=== PATIENT | male | born 2005 | race Caucasian/White ===

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

== ENCOUNTER 2024-02-01 14:28 | Emergency (ER) | payer OTHER, SELFPAY ==
--- NOTE | ~2024-02-01 | CT_ITS ---
EXAMINATION: CT abdomen pelvis w IV con CLINICAL INFORMATION: Reason for Exam gluteal abscesses COMPARISON: No prior CT available for comparison. TECHNIQUE: Multidetector volumetric imaging was performed from the superior aspect of the liver through the pubic symphysis 85 mL Omnipaque 350 injected Sagittal and coronal reformatted images were obtained on the technologist's workstation. This CT examination was performed using dose optimization techniques as appropriate, variously including the following: *Automated exposure control *Adjustment of mA and/or kV according to patient size (this includes techniques or standardized protocols for targeted exams where dose is matched to indication/reason for exam; i.e. extremities or head) *Use of iterative reconstruction technique DLP: 1154 mGy-cm FINDINGS: LOWER THORAX: Included lung bases are clear. HEPATOBILIARY: No focal hepatic lesions. No biliary ductal dilatation. GALLBLADDER: Gallbladder unremarkable. SPLEEN: Spleen is normal in size. PANCREAS: No focal mass or ductal dilatation. STOMACH AND GASTROINTESTINAL TRACT: Stomach is grossly unremarkable. There is no bowel distention or thickening. No CT evidence of appendicitis. ADRENALS: No adrenal nodules. KIDNEYS/URETERS: No hydronephrosis, stones or solid mass lesions. URINARY BLADDER: Partially decompressed. PELVIC VISCERA: Unremarkable PERITONEUM: No free air or fluid. LYMPH NODES: Mildly prominent bilateral inguinal lymph nodes without evidence of bulky lymphadenopathy. Intra-abdominal periaortic and inguinal lymph nodes are normal in size by CT criteria. VASCULAR:Abdominal aorta normal in size, no aneurysm found. BONES, ABDOMINAL WALL AND SOFT TISSUES: There is soft tissue opacity within the subcutaneous fat at midline extend from the skin to the coccyx roughly measures 4.7 x 2.4 cm axially and about 4.8 cm craniocaudally concerning for possible cellulitis and/or evolving abscess. CT/CT abdomen pelvis w IV con IMPRESSION: 1. There is soft tissue opacity within the buttock subcutaneous fat at midline extend from the skin to the coccyx roughly measures 4.7 x 2.4 x 4.8 cm concerning for possible cellulitis and/or evolving abscess. Although the process is deep abutting the sacrum, No CT evidence of bone involvement i.e. osteomyelitis, no bone destruction at this time or involvement of the intrapelvic organs. 2. Mildly prominent bilateral inguinal lymph nodes might be reactive.
[2024-02-01 14:50] VITALS: BP 115/67; PULSE 78; RESP 20; TEMP 36.6; O2SAT 98; BMI 41.4
--- NOTE | 2024-02-01 14:52 | ED_ITS ---
HPI - Male Genitourinary General Chief complaint: Skin/Abscess/Foreign Body Stated complaint: Abscess Buttock Area Time Seen by Provider: 02/01/24 15:23 Source: patient and RN notes reviewed Mode of arrival: ambulatory Limitations: no limitations History of Present Illness HPI Narrative: This is a 19-year-old male, with no known medical problems, presenting to the emergency department with complaints of gluteal abscess x 2 weeks. Patient states that approximately 2 weeks ago he noticed swelling and pain to his gluteal cleft. He endorses increased swelling and pain. He states that on Sunday he was seen by an urgent care facility where he was prescribed doxycycline. States that he took 2 doses on Sunday, 2 doses on Sunday without any relief. He was then seen at [facility] where they attempted to do an incision and drainage which did not provide him with any relief. He was discharged on Bactrim. He states that he took 2 doses of Bactrim yesterday and 1 this morning. He states that the pain, swelling, and symptoms have not improved despite antibiotics. He endorsed a fever of 102 last night. He has been taking ibuprofen for his pain which has provided him without any relief. Denies any other complaints or concerns at this time. Related Data Allergies Allergy/AdvReac Type Severity Reaction Status Date / Time Penicillins Allergy Unknown Verified 02/01/24 16:00 Review of Systems 2 Review of Systems: Yes all other systems are reviewed and are negative Constitutional: Constitutional: Reports as per [facility] Social History Social History Advance Directives: No Advance Directives Information Provided: No Physical Exam 2 Vital Signs: Vital Signs: Last Vital Signs Temp 98.4 F 02/01/24 17:02 Pulse 93 02/01/24 17:02 Resp 13 02/01/24 17:02 BP 128/72 02/01/24 17:02 Pulse Ox 100 02/01/24 17:02 O2 Del Method Room Air 02/01/24 17:02 BMI result Body Mass Index 41.4 Const: General: cooperative, comfortable and no acute distress O rientation/consciousness: patient oriented x3 Limitations: no limitations HEENT: Head: Yes normal to inspection, Yes normocephalic and Yes atraumatic Ears: hearing grossly normal bilaterally General nose exam: Normal external nose present Face and sinus: Yes normal facial exam Mouth: Normal oral and palatal mucosa present, oropharynx normal and moist mucous membranes Throat: Yes posterior oropharynx normal Eyes: General: appearance normal, both eyes and all related structures E yelids: Yes eyelids normal Conjunctivae: conjunctivae normal Sclerae: s clerae normal Pupils: Equal, round and reactive pupils present EOM: EOMs intact bilaterally Neck: Neck: Yes normal visual inspection, Yes full ROM and Yes no lymphadenopathy Lymphatic: no lymphadenopathy noted Chest: Chest palpation & inspection: normal inspection of the chest Resp: Effort & Inspection: normal respiratory effort and able to speak in complete sentences Auscultation: clear to auscultation bilaterally, no crackles, no rales, no rhonchi and no wheezes Cardio: Rate: regular rate Rhythm: regular rhythm Heart sounds: S1 normal heart sound present and S2 normal heart sound present GI: Inspection: Yes normal to inspection Back/Spine/Pelvis: Other: At the gluteal cleft/left buttocks there is a 4 x 4 cm area of hard induration and cellulitis, no fluctuance felt. No drainage. Skin: General skin exam: no rashes or lesions noted Trauma: no lacerations or abrasions Wounds: no wounds Neuro: General: patient oriented x3 and moves all extremities Cranial nerves: Yes Equal, round and reactive pupils present Extrem: General: Yes normal to inspection Right upper extremity: normal to inspection Left upper extremity: normal to inspection Right lower extremity: normal to inspection Left lower extremity: normal to inspection Course Course Course Narrative: This is a rapid medical exam: Additional HPI, ROS, PE not included below will be deferred to primary provider. Upper buttock pain near gluteal cleft on bilateral sides. States that he was seen twice a [facility] for his symptoms, once with an I&D completed. He states has not been draining anything from the abscess site. Reports he last moved his bowels earlier today, denies rectal pain or discharge. Denies trauma Reevaluation(s) Reevaluation #1: CT abdomen and pelvis revealing soft tissue opacity within the buttocks subcutaneous fat at midline extending from the skin to the coccyx roughly measures 4.7 x 2.4x 4.8. Concerning for cellulitis and/or evolving abscess. No evidence of bone involvement at this time. Discussed case with my attending physician, Dr. Cunningham, who came and assessed patient at bedside and performed incision and drainage. Recommending 1 dose of IV antibiotics. Given he is allergic to penicillin, will administer cefepime as well as Toradol for pain control. Wick was placed, given wound care instructions. Patient discharged on Keflex and doxycycline. Also given stool softeners. Given strict return precautions. Patient understands and agrees with plan. Patient stable for discharge. Time: 20:39 Medications Administered Discontinued Medications Generic Name Dose Route Start Last Admin Trade Name Lesley PRN Reason Stop Dose Admin Iohexol 85 ml 02/01/24 17:17 02/01/24 17:17 Iohexol 350 Mg/Ml 100 Ml Infus..Btl IV 02/01/24 17:18 85 ml ONCE ONE Administration Medical Decision Making Medical Decision Making [facility] Narrative: This is a 19-year-old male presenting to the emergency department for evaluation abscess. On arrival, vital signs within normal limits. Patient is nontoxic appearing. Patient has hard induration noted to the left buttock/gluteal cleft. Concerning for cellulitis. Given patient has already had incision and drainage on the right, concerning for failure of p.o. antibiotics as he has been already on doxycycline and Bactrim. I am not feeling any sort of fluctuance at this time. Given appearance, failure of p.o. antibiotics with incision and drainage, will obtain CT, and labs for further evaluation. Differential Diagnosis Differential Diagnoses: The differential diagnosis associated with the presentation includes Cellulitis, osteomyelitis, abscess, pilonidal cyst Admission/Observation Consideration of admission/observation: Escalation of care including admission/observation considered Escalation of care including admission/observation considered however given workup today not warranted at this time. Lab Data [facility] Lab Attestation statement: I reviewed the patient's lab results. Patient with leukocytosis at 17 with left shift, chemistry within normal limits. 02/01/24 16:40 02/01/24 16:40 Labs: Lab Results 02/01/24 Range/Units 16:40 WBC 17.7 H (4.8-10.8) X10*3/uL RBC 5.28 (4.60-5.80) X10*6/uL Hgb 14.7 (14.0-18.0) g/dl Hct 43.4 (42.0-52.0) % MCV 82.2 (80.0-98.0) fL MCH 27.8 (27.0-33.0) pg MCHC 33.9 (31.0-36.0) g/dl RDW 11.6 (11.0-16.0) % Plt Count 295 (160-400) X10*3/uL MPV 9.6 (9.4-12.4) fL Immature Gran % (Auto) 0.3 (0.0-0.4) % Neut % (Auto) 73.7 H (45-73) % Lymph % (Auto) 16.1 L (20-40) % Door % (Auto) 7.7 (2-11) % Eos % (Auto) 1.8 (0-4) % Baso % (Auto) 0.4 (0-2) % Lymph # (Auto) 2.9 (1.2-4.9) X10*3/uL Door # (Auto) 1.4 H (0.1-1.2) X10*3/uL Eos # (Auto) 0.3 (0.0-0.4) X10*3/uL Baso # (Auto) 0.1 (0.0-0.2) X10*3/uL Abs Immat Gran (auto) 0.06 H (0.00-0.03) X10*3/uL Absolute Neuts (auto) 13.1 H (2.0-8.3) x10*3/uL Absolute Nucleated RBC 0.000 (0.0-0.012) X10*3/uL Nucleated RBC % (auto) 0.0 (0.0-0.2) /100WBC Sodium 138 (135-145) mmol/L Potassium 4.1 (3.3-5.1) mmol/L Chloride 106 (96-108) mmol/L Carbon Dioxide 24 (22-29) mmol/L Anion Gap 12 (12-20) BUN 14 (9-16) mg/dL Creatinine 0.99 (0.5-1.4) mg/dL Estim Creat Clear Calc 133.4 Estimated GFR > 60 Random Glucose 89 (60-115) mg/dL Calcium 9.5 (8.4-10.2) mg/dL Total Bilirubin 0.4 (0.0-1.0) mg/dL Direct Bilirubin 0.2 (0.0-0.5) mg/dL AST 14 (5-37) U/L ALT 26 (0-40) U/L Alkaline Phosphatase 81 (39-117) U/L Total Protein 7.6 (6.5-8.0) g/dL Albumin 4.1 (3.5-5.0) g/dL Radiology Impression Discussion of test interpretation with radiology: I have reviewed the radiologist's reading. Radiologist Impression: CT/CT abdomen pelvis w IV con IMPRESSION: 1. There is soft tissue opacity within the buttock subcutaneous fat at midline extend from the skin to the coccyx roughly measures 4.7 x 2.4 x 4.8 cm concerning for possible cellulitis and/or evolving abscess. Although the process is deep abutting the sacrum, No CT evidence of bone involvement i.e. osteomyelitis, no bone destruction at this time or involvement of the intrapelvic organs. 2. Mildly prominent bilateral inguinal lymph nodes might be reactive. Procedures Abscess I/D Site: other (Buttocks) Side (if applicable): left Local Anesthetic: lidocaine 1% Amount of anesthesia used (mL): 10 Technique: incised with blade Amount of fluid expressed (mL): 15 Sent for culture/gram staining?: No Irrigation: No Packing used?: iodoform Discharge Plan Discharge Clinical Impression: Abscess Patient Disposition: Still a Patient Instructions: Abscess Follow-up (ED), Incision and Drainage (ED) Additional Instructions: You were seen in the emergency department due to an abscess. We had to open this area. We also gave you IV antibiotics. You need to take prescribed antibiotic as directed. Take doxycycline and Keflex as prescribed. Remove string from region in 2 days. You may do this by taking a shower and removing it. Keep wound clean and dry. Take prescribed medication as directed. Continue taking Tylenol and ibuprofen as needed for pain. I am also prescribing you oxycodone, only take this for severe pain only. He is be advised that this can cause drowsiness, do not drink alcohol or drive while taking this medication. This is also addictive, only take as needed. You can not have his medication refilled from the emergency room. Any new or worsening symptoms occur including but not limited to worsening pain, swelling, fevers, chills, please return for re-evaluation.
[2024-02-01 16:48] LABS: MANUAL DIFF FLAG NO
[2024-02-01 16:49] LABS: Basophils Absolute Auto 0.1 X10*3/uL (0.0-0.2); Basophils Percent Auto 0.4 % (0-2); Eosinophils Absolute Auto 0.3 X10*3/uL (0.0-0.4); Eosinophils Percent Auto 1.8 % (0-4); Hematocrit 43.4 % (42.0-52.0); Hemoglobin 14.7 g/dl (14.0-18.0); Imm Gran Abs Auto 0.06 X10*3/uL (0.00-0.03); Imm Gran Pct Auto 0.3 % (0.0-0.4); Lymphocytes Absolute Auto 2.9 X10*3/uL (1.2-4.9); Lymphocytes Percent Auto 16.1 % (20-40); Mean Corpuscular HGB Conc 33.9 g/dl (31.0-36.0); Mean Corpuscular Hemoglobin 27.8 pg (27.0-33.0); Mean Corpuscular Volume 82.2 fL (80.0-98.0); Mean Platelet Volume 9.6 fL (9.4-12.4); Monocytes Absolute Auto 1.4 X10*3/uL (0.1-1.2); Monocytes Percent Auto 7.7 % (2-11); Neutrophils Absolute Auto 13.1 x10*3/uL (2.0-8.3); Neutrophils Percent Auto 73.7 % (45-73); Platelet Count 295 X10*3/uL (160-400); Red Blood Count 5.28 X10*6/uL (4.60-5.80); Red Cell Distribution Width 11.6 % (11.0-16.0); White Blood Count 17.7 X10*3/uL (4.8-10.8)
[2024-02-01 17:02] VITALS: BP 128/72; PULSE 93; RESP 13; TEMP 36.9; O2SAT 100
[2024-02-01 17:02] LABS: Alanine Aminotransferase 26 U/L (0-40); Albumin Level 4.1 g/dL (3.5-5.0); Alkaline Phosphatase 81 U/L (39-117); Anion Gap 12 (12-20); Aspartate Amino Transferase 14 U/L (5-37); Bilirubin Direct 0.2 mg/dL (0.0-0.5); Bilirubin Total 0.4 mg/dL (0.0-1.0); Blood Urea Nitrogen 14 mg/dL (9-16); Calcium 9.5 mg/dL (8.4-10.2); Carbon Dioxide 24 mmol/L (22-29); Chloride 106 mmol/L (96-108); Creatinine Clr Calc Pharmacy 133.4; Estimated Glomerular Filt Rate > 60; Glucose Random 89 mg/dL (60-115); Potassium 4.1 mmol/L (3.3-5.1); Sodium 138 mmol/L (135-145); Total Protein 7.6 g/dL (6.5-8.0)
[2024-02-01] MEDS: iohexoL 350 MG/ML 100 ML INFUS..BTL 85 ML IV (17:17)
[2024-02-01] MEDS: Lidocaine HCl 1 % MPF 5 ML VIAL INFILTRATI ×2 (20:37→21:02)
[2024-02-01 20:55] VITALS: BP 143/84; PULSE 97; RESP 18; TEMP 37.6; O2SAT 99
[2024-02-01] MEDS: Ketorolac Tromethamine 30 MG/ML VIAL IVPUSH (21:02)
[2024-02-01] MEDS: cefEPime HCl 2 GM in 0.9 % Sodium Chloride 50 ML IV (21:02)
[2024-02-02 00:36] VITALS: BP 127/83; PULSE 96; RESP 18; TEMP 36.9; O2SAT 100
== END 2024-02-01 22:15 | disposition home or self-care (01) ==
PROVIDERS: Physician Assistant Medical; Emergency Provider Emergency Medicine; PCP Nurse Practitioner Primary Care
DX: L02.31 Cutaneous abscess of buttock (principal); Z88.0 Allergy status to penicillin
CPT/HCPCS: 10060; 36415; 74177; 80048; 80076; 85025; 87040; 96374; 96375; 99284; J0692; J1885; Q9967

== ENCOUNTER 2024-02-14 09:53 | Outpatient (AMB) | payer OTHER, SELFPAY ==
[2024-02-14 09:54] VITALS: BP 148/82; PULSE 81; BMI 41.5
--- NOTE | 2024-02-14 09:54 | A.OFFVIS_ITS ---
Intake Vital Signs 02/14/24 09:54 Height 5 ft 4 in Weight 242 lb BMI 41.5 BP 148/82 H Blood Pressure Location Rt brachial Position Sitting Pulse 81 Intake Visit Reasons: pilonidal abscess Intake Note: This patient presents for an assessment pilonidal abscess. Pt c/o; reports abscess was I&D at [facility], reports on 2 rounds of abx. Tow Driver Required: No Accompanied by: Self / Same As Patient Allergies Penicillins [PENICILLINS] Allergy (Unknown, Unverified 02/14/24 10:06) RASH SEAFOOD Allergy (Unknown, Uncoded 02/14/24 10:06) UNKNOWN Medication List - Last Reconciled 02/14/24 by Winston Skinner MD acetaminophen (Tylenol Extra Strength) 1,000 mg (2 x 500 mg) PO QID PRN cephalexin 250 mg PO QID 7 days clindamycin HCl 300 mg PO Q6H doxycycline hyclate 100 mg PO BID 7 days ibuprofen 600 mg PO Q6H PRN lisinopril 10 mg PO DAILY oxycodone 5 mg PO Q6H PRN sulfamethoxazole-trimethoprim 800-160 mg 1 tab PO BID HPI pilonidal abscess HPI Details 19-year-old male referred for a pilonida l cyst. He says he has had this area of pain, swelling and tenderness on the tailbone for about a month now. He had been to an urgent care center [facility] and was prescribed oral antibiotics which he says he had not provide relief. He went to [facility] ER and he said he had an I and D done which also did not seem to provide lasting relief He was in the ER here in [place] last February 01, 2024. He was referred to me. He was prescribed antibiotics. He says he continues to have some discomfort along with some swelling on the area. [facility] Medical History (Updated 02/14/24 @ 10:24 by Winston Skinner MD) Sacrococcygeal pilonidal cyst No known health problems Surgical History History of incision and drainage Review of Systems Const Denies chills and Denies fever(s) Card Denies chest pain, Denies dyspnea and Denies dyspnea on exertion Resp Denies cough, Denies dyspnea and Denies dyspnea on exertion GI Denies hematochezia and Denies change in bowel habits Denies hematuria and Denies difficulty urinating Musc Denies back pain and Denies limited range of motion Neuro Denies focal weakness and Denies convulsions Psych Denies depression and Denies mood swings Physical Exam Vital Signs: Last Vital Signs Pulse 81 02/14/24 09:54 BP 148/82 H 02/14/24 09:54 BMI result Body Mass Index 41.5 Const Other: Obese General: comfortable and no acute distress Orientation/consciousness: patient oriented x3 Neck Neck: Yes no lymphadenopathy Resp Auscultation: clear to auscultation bilaterally Cardio Rhythm: regular rhythm GI Palpation (GI): Soft to palpation, nontender and no guarding Back/Spine/Pelvis Other: On the sacrococcygeal area is note of midline pits within the gluteal cleft. There is note of an induration about 2.5 cm to the left of the midline as well. There has no obvious fluctuance Neuro General: patient oriented x3 Assessment & Plan Assessment & Plan (1) Sacrococcygeal pilonidal cyst: Code(s): L05.91 - Pilonidal cyst without abscess Plan: He has a pilonidal cyst in the sacrococcygeal area. There is persistent induration. There were note of midline pits I explained to him the technique of excision of this pilonidal cyst as permanent treatment. I discussed the risks including but not limited to bleeding, infections, postop pain, healing, as well as the benefits and alternatives. I explained to him that this procedure was done under anesthesia in the operating room. He understands the risk of recurrent abscesses if this diseased area is not excised He wants to proceed with excision. Coding Level of Care Code New Pt Level 3 (08418) Diagnoses Sacrococcygeal pilonidal cyst L05.91
== END 2024-02-14 10:12 | disposition home or self-care (01) ==
PROVIDERS: PCP Nurse Practitioner Primary Care; Visit Provider Surgery
DX: L05.91 Pilonidal cyst without abscess (principal)
CPT/HCPCS: 99203

== ENCOUNTER → 2024-02-14 09:53 | Outpatient (BNVA) | payer OTHER, SELFPAY | PROVIDERS: PCP Nurse Practitioner Primary Care; Visit Provider Surgery | DX: L05.91 Pilonidal cyst without abscess (principal) | CPT/HCPCS: 99202 ==

== ENCOUNTER 2024-03-11 08:00 | Day surgery (SDC) | payer OTHER, SELFPAY ==
[2024-03-07 13:47] VITALS: BMI 41.5
--- NOTE | 2024-03-07 14:55 | HO.ANESPROP2 ---
HPI - Anesthesia Eval Consult details Narrative: 19yo M for Excision Pilonidal Cyst Sacroccygeal Area PMFSH Active Problems Active Problems: All Active Problems Sacrococcygeal pilonidal cyst (Acute) Past Medical History Medical History Sacrococcygeal pilonidal cyst No known health problems Surgical History Surgical History Hx of tonsillectomy History of incision and drainage Social History Social History Patient Tobacco Use Status: Never used Tobacco Are you DNR?: No Advance Directives: No Advance Directives Information Provided: Yes Nutrition Risks: No Nutritional Risk Meds Allergies Allergy/AdvReac Type Severity Reaction Status Date / Time Penicillins [PENICILLINS] Allergy Unknown RASH Verified 03/11/24 08:16 SEAFOOD Allergy Unknown UNKNOWN Uncoded 03/11/24 08:16 Home Medications ?Medication ?Instructions ?Recorded ?Confirmed ?Last Taken ?Type lisinopril 10 mg tablet 10 mg PO DAILY 02/14/24 03/11/24 Unknown History Exam Height,Weight and Vital Signs: Height 5 ft 4 in Weight 109.769 kg Assessment and Plan Assessment Anesthesia Assessment: Chart Reviewed
[2024-03-11] MEDS: Lactated Ringers 1,000 ML 100 ML IVCONT (08:54)
[2024-03-11 09:06] VITALS: BP 140/96; PULSE 79; RESP 18; TEMP 37; O2SAT 97
--- NOTE | 2024-03-11 09:20 | HO.ANESPROP2 ---
PMFSH Active Problems Active Problems: All Active Problems Sacrococcygeal pilonidal cyst (Acute) Past Medical History Medical History Sacrococcygeal pilonidal cyst No known health problems Functional capacity: independent ambulation Family History Family history of problems with anesthesia: No Surgical History Surgical History Hx of tonsillectomy History of incision and drainage History of Problems with Anesthesia: No Social History Social History Patient Tobacco Use Status: Never used Tobacco Are you DNR?: No Advance Directives: No Advance Directives Information Provided: Yes Nutrition Risks: No Nutritional Risk Meds Allergies Allergy/AdvReac Type Severity Reaction Status Date / Time Penicillins [PENICILLINS] Allergy Unknown RASH Verified 03/11/24 08:16 SEAFOOD Allergy Unknown UNKNOWN Uncoded 03/11/24 08:16 Active Medications: Current Medications Lactated Ringer's (Lr) 1,000 mls @ 100 mls/hr IVCONT .Q10H СВЕТЛАНА Last Admin: 03/11/24 08:54 Dose: 100 mls/hr Home Medications ?Medication ?Instructions ?Recorded ?Confirmed ?Last Taken ?Type lisinopril 10 mg tablet 10 mg PO DAILY 02/14/24 03/11/24 Unknown History Exam Height,Weight and Vital Signs: Height 5 ft 4 in Weight 109.769 kg Last Vital Signs Temp 98.6 F 03/11/24 09:06 Pulse 79 03/11/24 09:06 Resp 18 03/11/24 09:06 BP 140/96 H 03/11/24 09:06 Pulse Ox 97 03/11/24 09:06 O2 Del Method Room Air 03/11/24 09:06 Airway Mallampati Class: III TM Dist: >3cm Neck ROM: Full Heart: RRR Lungs: CTA Assessment and Plan Assessment Anesthesia Assessment: Anesthesia Plan Discussed Final Anesthetic Review Family History of Problems with Anesthesia: No History of Problems with Anesthesia: No NPO: Yes ASA Class: III Final Preanesthetic Review: Meds/Allgs Chart Reviewed, Consent Obtained/Reviewed and Anes Risks/Benef Reviewed Anesthetic Plan Anesthetic Plan: GA Disposition: Standard PACU
--- NOTE | 2024-03-11 09:25 | MHC.SHP ---
Pre-Procedural Eval Section A - 24 Hr Update-Section A only Date of Service: 03/11/24 The patient is an INPATIENT: No Changes since office visit: Yes Cold of Flu in the past 2 weeks, Yes New Medical Problems, Yes Changes in Medication and Yes Patient answered all questions The patient has been examined within 24 hours of the surgical procedure. The History & Physical has been completed within 30 days and I have reviewed it.: Yes Section B - Complete if H&P > 30 days Chief Complaint: Pilonidal cyst without abscess Allergies: Allergies Allergy/AdvReac Type Severity Reaction Status Date / Time Penicillins [PENICILLINS] Allergy Unknown RASH Verified 03/11/24 08:16 SEAFOOD Allergy Unknown UNKNOWN Uncoded 03/11/24 08:16 Plan I have reviewed the history and physical and performed a pertinent physical examination on my patient. No changes have occurred unless specified. Time Spent With Patient Time: Total time managing care of this patient today ____ minutes.
[2024-03-11 09:39] VITALS: BMI 41.5
--- NOTE | 2024-03-11 11:14 | W.PM.OPN ---
Operative Note Operative Note Date of Service: 03/11/24 Narrative: Preop diagnosis: Pilonidal cyst sacrococcygeal area Postop diagnosis: The same Procedure: Excision of pilonidal cyst, sacrococcygeal area, 7 cm long by 4 cm wide by 4 cm deep Surgeon: Winston Skinner MD family service assistant: NENITA Tam The patient is a 19-year-old male with an area of persistent drainage and induration in the sacrococcygeal region consistent with a pilonidal cyst. He understood the technique of excision under general anesthesia. He was aware of the risks, benefits, and alternatives The patient was brought to the operating room placed in prone position under general anesthesia via endotracheal tube. Buttocks were retracted with wide tape laterally. The sacrococcygeal area was prepped and draped in the usual sterile fashion. A surgical time-out was done. The patient received cefazolin 2 g IV preoperatively Was note of an induration on the sacrococcygeal area to the left of the midline. There was note of multiple midline pits in the gluteal cleft. I infiltrated the planned line of incision with lidocaine 1%. I made an elliptical incision around this area of induration including the midline pits using blade 15. This was carried down through the full-thickness of the skin and subcutaneous fat with electrocautery. I excised this entire diseased tissue to make sure that we had removed all tracts The excised area was 7 cm long x 4 cm wide x 4 cm deep . There was note of persistent bleeding from throughout the deep subcutaneous tissue because of the inflammatory process. He would to do a lot of cauterization to control this oozing areas. I had to also apply multiple [id number] Polysorb 3-0 sutures on the inferior aspect of the deep subcutaneous area to control bleeders. I copiously irrigated. Once we achieved adequate hemostasis, I proceeded to reapposed the deep subcutaneous tissue with Polysorb 3-0 interrupted sutures. Skin closure was achieved with nylon 3-0 vertical mattress sutures interrupted fashion. The area was infiltrated with Marcaine 0.5% for postop analgesia. Thick dressings were applied. The procedure was completed The patient tolerated procedure well. There were no immediate complications. Initial and final counts of sponges and instruments were correct. Estimated blood loss was about 75 cc. The patient was extubated without difficulty and transferred to the recovery room with stable vital signs.
[2024-03-11 11:23] VITALS: BP 119/68; PULSE 86; RESP 16; TEMP 36.3; O2SAT 96
[2024-03-11 11:28] VITALS: BP 128/85; PULSE 78; RESP 17; O2SAT 96
[2024-03-11 11:33] VITALS: BP 128/82; PULSE 88; RESP 17; O2SAT 96
[2024-03-11 11:38] VITALS: BP 128/82; PULSE 80; RESP 17; O2SAT 96
[2024-03-11 12:03] VITALS: BP 133/88; PULSE 72; RESP 18; TEMP 36.1; O2SAT 97
--- NOTE | 2024-03-11 12:56 | HO.POSTANES ---
Post Anesthesia Evaluation Post Anesthesia Evaluation Date of Service: 03/11/24 Vital Signs: Vital Signs Temp Pulse Resp BP Pulse Ox O2 Del Method 03/11/24 12:03 97.0 F 72 18 133/88 97 Room Air 03/11/24 11:38 80 17 128/82 96 Room Air 03/11/24 11:33 88 17 128/82 96 Room Air 03/11/24 11:28 78 17 128/85 96 Room Air 03/11/24 11:23 97.3 F 86 16 119/68 96 Room Air 03/11/24 09:06 98.6 F 79 18 140/96 H 97 Room Air Anesthesia: General Endotracheal-GETA Mental Status: Awake Pain Control: Satisfactory Nausea/Vomiting: None Hydration: Adequate Anesthesia-Related Issues: No Anes. Related Issues
== END 2024-03-11 12:57 | disposition home or self-care (01) ==
PROVIDERS: PCP Nurse Practitioner Primary Care; Visit Provider Surgery
PROC: (CPT 11771; principal; 2024-03-11 09:30)
DX: L05.91 Pilonidal cyst without abscess (principal); Z79.1 Long term (current) use of non-steroidal anti-inflammatories (NSAID); Z79.899 Other long term (current) drug therapy; Z88.0 Allergy status to penicillin
CPT/HCPCS: 11771; 88304; J0690; J1100; J1885; J2250; J2405; J2704; J2795; J3010

== ENCOUNTER → 2024-03-11 08:00 | Outpatient (BNV) | payer OTHER, SELFPAY | PROVIDERS: PCP Nurse Practitioner Primary Care; Visit Provider Surgery | DX: L05.91 Pilonidal cyst without abscess (principal) | CPT/HCPCS: 11772 ==

== ENCOUNTER 2024-03-26 09:41 | Outpatient (AMB) | payer OTHER, SELFPAY ==
--- NOTE | 2024-03-26 10:17 | A.OFFVIS_ITS ---
Intake Visit Reasons: S/P excision pilonidal cyst of sacroccygeal area Intake Note: This patient presents for a post-op status post excision pilonidal cyst of sacroccygeal area. Patient c/o; reports no complaints. [employer]er [employer] Required: No Accompanied by: Self / Same As Patient Allergies Penicillins [PENICILLINS] Allergy (Unknown, Verified 03/26/24 10:25) RASH SEAFOOD Allergy (Unknown, Uncoded 03/26/24 10:25) UNKNOWN HPI HPI S/P excision pilonidal cyst of sacroccygeal area: Details: He underwent excision of a large pilonidal cyst from the sacrococcygeal area last 03/11/2024. He tolerated theprocedure well. He says he doing well at home and denies complaints with regards to the surgical site. [facility] Medical History Sacrococcygeal pilonidal cyst No known health problems Surgical History History of excision of pilonidal cyst (~03/11/24) Hx of tonsillectomy History of incision and drainage Social History Patient Tobacco Use Status: Never used Tobacco Review of Systems Const Denies chills and Denies fever(s) Card Denies chest pain, Denies dyspnea and Denies dyspnea on exertion Resp Denies cough, Denies dyspnea and Denies dyspnea on exertion GI Denies hematochezia and Denies change in bowel habits Denies hematuria and Denies difficulty urinating Musc Denies back pain and Denies limited range of motion Neuro Denies focal weakness and Denies convulsions Psych Denies depression and Denies mood swings Physical Exam Const General: comfortable and no acute distress Back/Spine/Pelvis Other: excision site on the sacrococcygeal area is well healed, sutures intact, no cellulitis Assessment & Plan Assessment & Plan (1) Sacrococcygeal pilonidal cyst: Code(s): L05.91 - Pilonidal cyst without abscess Category: Medical Plan: status post excision. I removed all his sutures. The wound edges remained well apposed. I advised him on good gene on the area. He can follow up with me on a p.r.n. basis. Coding Level of Care Code Global (80058) Diagnoses Sacrococcygeal pilonidal cyst L05.91
== END 2024-03-26 10:42 | disposition home or self-care (01) ==
PROVIDERS: PCP Nurse Practitioner Primary Care; Visit Provider Surgery
DX: L05.91 Pilonidal cyst without abscess (principal)
CPT/HCPCS: 99024

== ENCOUNTER → 2024-03-26 09:41 | Outpatient (BNVA) | payer OTHER, SELFPAY | PROVIDERS: PCP Nurse Practitioner Primary Care; Visit Provider Surgery | DX: Z48.817 Encounter for surgical aftercare following surgery on the skin and subcutaneous tissue (principal); Z98.890 Other specified postprocedural states | CPT/HCPCS: 99212 ==

== ENCOUNTER 2024-04-02 16:52 | Emergency (ER) | payer OTHER, SELFPAY ==
[2024-04-02 16:58] VITALS: BP 154/90; PULSE 98; RESP 16; TEMP 37.2; O2SAT 97; BMI 40.9
--- NOTE | 2024-04-02 16:59 | ED_ITS ---
HPI - General Adult General Chief complaint: Body Fluid Exposure Stated complaint: needle stick at work Source: patient, RN notes reviewed and old records reviewed Mode of arrival: ambulatory Limitations: no limitations History of Present Illness HPI narrative: 19-year-old male with past medical history significant for hypertension presents for evaluation of a needlestick. Patient works at the [employer]. 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 He was accidentally stuck with a needle on his right thumb fingertip while picking up 1 of these bags He believes it was a diabetic but is not entirely sure It is unclear which patient this was used on The patient has no complaints or concerns at this time He washes hands and clean the area prior to coming to the hospital Related Data Home Medications ?Medication ?Instructions ?Recorded ?Confirmed lisinopril 10 mg tablet 10 mg PO DAILY 02/14/24 03/11/24 Previous Rx's ?Medication ?Instructions ?Recorded ibuprofen 600 mg tablet 600 mg PO Q6H PRN pain #30 tabs 03/11/24 oxycodone-acetaminophen 5 mg-325 1 tab PO Q4-6H PRN pain #25 tabs 03/11/24 mg tablet (Percocet) Allergies Allergy/AdvReac Type Severity Reaction Status Date / Time Penicillins [PENICILLINS] Allergy Unknown RASH Verified 04/02/24 17:00 SEAFOOD Allergy Unknown UNKNOWN Uncoded 03/26/24 10:25 Review of Systems 2 Constitutional: Constitutional: Denies body ache(s), Denies chills, Denies fever(s) and Denies headache(s) ENT: Denies headache(s) Integumentary/Breasts: Comments: Needlestick right thumb Neurologic: Denies headache(s) PMFSH Past Medical History Medical History Sacrococcygeal pilonidal cyst No known health problems Surgical History History of excision of pilonidal cyst (~03/11/24) Hx of tonsillectomy History of incision and drainage Social History Social History Patient Tobacco Use Status: Never used Tobacco Do you have a plan to hurt others: No Plan Physical Exam ED Vital Signs: Vital Signs - 24 hr 04/02/24 16:58 Temperature 99.0 F Pulse Rate 98 Respiratory Rate 16 Blood Pressure 154/90 H Pulse Oximetry 97 Oxygen Delivery Method Room Air BMI result Body Mass Index 40.9 Const General: healthy appearing, comfortable, no acute distress, alert and awake Nutritional Appearance: well nourished Orientation/consciousness: patient oriented x3 HENMT Head: Yes normocephalic and Yes atraumatic Eyes Eyelids: Yes eyelids normal Conjunctivae: conjunctivae normal Sclerae: sclerae normal Corneas: corneas normal Pupils: Equal, round and reactive pupils present EOM: EOMs intact bilaterally Neck Neck: Yes full ROM Resp Effort & Inspection: normal respiratory effort, able to speak in complete sentences and not labored Skin Other: Pinpoint puncture wound to the right 1st fingertip General skin exam: elasticity normal Neuro General: patient oriented x3 Cranial nerves: Yes Equal, round and reactive pupils present and Yes Bilaterally intact EOM present Cognition (Neuro): normal cognition Extrem Other: Moving all extremities well without any obvious deformities Course Course Course Narrative: RME- 19-year-old male past medical history significant for hypertension presents for evaluation of a needlestick. Patient works at [employer]. He was picking up a bio hazard bag and was stuck with a needle on his right thumb. He believes it was a diabetic needle but is not quite sure. This happened 10 minutes prior to arrival. Plan for baseline labs Medical Decision Making Medical Decision Making [facility] Narrative: Patient had a needlestick pain unknown source. This was at a health center. Given that it is unknown the source and there is possibility that the source had a communicable disease, discussed risks and benefits of post exposure prophylaxis but I recommended this for the patient. We will give him the post exposure prophylaxis kit and he will follow-up with Infectious Disease Differential Diagnosis Differential Diagnoses: The differential diagnosis associated with the presentation includes Puncture wound Post exposure prophylaxis Needlestick Hepatitis exposure HIV exposure Lab Data 04/02/24 17:39 04/02/24 17:39 Labs: Lab Results 04/02/24 Range/Units 17:39 WBC 12.3 H (4.8-10.8) X10*3/uL RBC 5.51 (4.60-5.80) X10*6/uL Hgb 15.5 (14.0-18.0) g/dl Hct 45.0 (42.0-52.0) % MCV 81.7 (80.0-98.0) fL MCH 28.1 (27.0-33.0) pg MCHC 34.4 (31.0-36.0) g/dl RDW 11.9 (11.0-16.0) % Plt Count 288 (160-400) X10*3/uL MPV 10.1 (9.4-12.4) fL Immature Gran % (Auto) 0.3 (0.0-0.4) % Neut % (Auto) 74.8 H (45-73) % Lymph % (Auto) 17.2 L (20-40) % [place] % (Auto) 5.6 (2-11) % Eos % (Auto) 1.6 (0-4) % Baso % (Auto) 0.5 (0-2) % Lymph # (Auto) 2.1 (1.2-4.9) X10*3/uL [place] # (Auto) 0.7 (0.1-1.2) X10*3/uL Eos # (Auto) 0.2 (0.0-0.4) X10*3/uL Baso # (Auto) 0.1 (0.0-0.2) X10*3/uL Abs Immat Gran (auto) 0.04 H (0.00-0.03) X10*3/uL Absolute Neuts (auto) 9.2 H (2.0-8.3) x10*3/uL Absolute Nucleated RBC 0.000 (0.0-0.012) X10*3/uL Nucleated RBC % (auto) 0.0 (0.0-0.2) /100WBC Sodium 138 (135-145) mmol/L Potassium 3.8 (3.3-5.1) mmol/L Chloride 105 (96-108) mmol/L Carbon Dioxide 23 (22-29) mmol/L Anion Gap 14 (12-20) BUN 16 (9-16) mg/dL Creatinine 0.84 (0.5-1.4) mg/dL Estim Creat Clear Calc 161.6 Estimated GFR > 60 Random Glucose 137 H (60-115) mg/dL Calcium 10.0 (8.4-10.2) mg/dL Total Bilirubin 0.3 (0.0-1.0) mg/dL AST 18 (5-37) U/L ALT 25 (0-40) U/L Alkaline Phosphatase 96 (39-117) U/L Total Protein 8.1 H (6.5-8.0) g/dL Albumin 4.6 (3.5-5.0) g/dL Discharge Plan Discharge Clinical Impression: Accidental hypodermic needlestick injury Patient Disposition: Home, Self-Care Instructions: Needle Stick Injuries (ED), Postexposure Prophylaxis (ED) Additional Instructions: Your blood work today was reassuring. Given that we do not know the source of the needle that you were struck by, I recommend starting Truvada and ISENTRESS as provided. These are post exposure prophylaxis medications to help prevent acquiring communicable diseases I recommend that you do not drink alcohol or use Tylenol while taking these medications Follow-up with [facility] and Dr. Moreno at the number provided, call tomorrow to schedule follow-up Prescriptions: No Action oxycodone-acetaminophen [Percocet] 5-325 mg tablet 1 tab PO Q4-6H PRN (Reason: pain) Qty: 25 0RF Rx Instructions: Partial Fill upon patient request. ibuprofen 600 mg tablet 600 mg PO Q6H PRN (Reason: pain) Qty: 30 0RF lisinopril 10 mg tablet 10 mg PO DAILY Referrals: YULISA MORENO MD [Physician] - (needlestick at work, unknown source) Print Language: Sammarinese
--- NOTE | 2024-04-02 17:41 | MHC.EDTECH ---
PATIENT LAB DRAWN AND SENT TO LAB .
[2024-04-02 17:43] LABS: MANUAL DIFF FLAG NO
[2024-04-02 17:51] LABS: Basophils Absolute Auto 0.1 X10*3/uL (0.0-0.2); Basophils Percent Auto 0.5 % (0-2); Eosinophils Absolute Auto 0.2 X10*3/uL (0.0-0.4); Eosinophils Percent Auto 1.6 % (0-4); Hemoglobin 15.5 g/dl (14.0-18.0); Imm Gran Abs Auto 0.04 X10*3/uL (0.00-0.03); Imm Gran Pct Auto 0.3 % (0.0-0.4); Lymphocytes Absolute Auto 2.1 X10*3/uL (1.2-4.9); Lymphocytes Percent Auto 17.2 % (20-40); Mean Corpuscular HGB Conc 34.4 g/dl (31.0-36.0); Mean Corpuscular Hemoglobin 28.1 pg (27.0-33.0); Mean Corpuscular Volume 81.7 fL (80.0-98.0); Mean Platelet Volume 10.1 fL (9.4-12.4); Monocytes Absolute Auto 0.7 X10*3/uL (0.1-1.2); Monocytes Percent Auto 5.6 % (2-11); Neutrophils Absolute Auto 9.2 x10*3/uL (2.0-8.3); Neutrophils Percent Auto 74.8 % (45-73); Platelet Count 288 X10*3/uL (160-400); Red Blood Count 5.51 X10*6/uL (4.60-5.80); Red Cell Distribution Width 11.9 % (11.0-16.0); White Blood Count 12.3 X10*3/uL (4.8-10.8)
[2024-04-02 18:14] LABS: Alanine Aminotransferase 25 U/L (0-40); Albumin Level 4.6 g/dL (3.5-5.0); Alkaline Phosphatase 96 U/L (39-117); Anion Gap 14 (12-20); Aspartate Amino Transferase 18 U/L (5-37); Bilirubin Total 0.3 mg/dL (0.0-1.0); Blood Urea Nitrogen 16 mg/dL (9-16); Carbon Dioxide 23 mmol/L (22-29); Chloride 105 mmol/L (96-108); Creatinine Clr Calc Pharmacy 161.6; Estimated Glomerular Filt Rate > 60; Glucose Random 137 mg/dL (60-115); Potassium 3.8 mmol/L (3.3-5.1); Sodium 138 mmol/L (135-145); Total Protein 8.1 g/dL (6.5-8.0)
[2024-04-02] MEDS: Post Exposure Medication Kit 1 KIT PO (19:06)
[2024-04-02] MEDS: Raltegravir Potassium 400 MG TABLET PO (19:06)
[2024-04-02] MEDS: Emtricitabin/Tenofovir 200/300 TABLET 1 TAB PO (19:06)
[2024-04-03 04:24] LABS: HBc Num1 0.13 S/CO (0.00-0.79); HBsAGNum1 0.24 S/CO (0.00-0.99); HIV AB/AG Nonreactive (Nonreactive); HIV Num 1 0.05 S/CO (0.00-0.99); Hepatitis A Antibody IgM 0.26 Index (0-0.79); Hepatitis B Core Antibody Nonreactive (Nonreactive); Hepatitis B Surface Antigen Negative (Negative); ~HepC Num1 0.44 S/CO (0.00-0.79); ~Hepatitis A Antibody IgM Nonreactive (Nonreactive); ~Hepatitis B Surface Antibody NONREACTIVE (Nonreactive); ~Hepatitis C Antibody Nonreactive (Nonreactive)
== END 2024-04-02 19:52 | disposition home or self-care (01) ==
PROVIDERS: Physician Assistant; Emergency Provider Emergency Medicine; PCP Nurse Practitioner Primary Care
DX: T75.89XA Other specified effects of external causes, initial encounter (principal); W46.0XXA Contact with hypodermic needle, initial encounter; Y93.89 Activity, other specified; Y92.239 Unspecified place in hospital as the place of occurrence of the external cause; Y99.0 Civilian activity done for income or pay
CPT/HCPCS: 36415; 80053; 85025; 86704; 86706; 86709; 86803; 87340; 87389; 99281; 99283

== ENCOUNTER → 2024-04-03 10:56 | Outpatient (BNVA) | payer OTHER, SELFPAY | PROVIDERS: PCP Nurse Practitioner Primary Care; Visit Provider Physician Assistant | DX: Z77.21 Contact with and (suspected) exposure to potentially hazardous body fluids (principal) | CPT/HCPCS: 99204 ==

== ENCOUNTER → 2024-04-08 08:31 | Outpatient (BNVA) | payer OTHER, SELFPAY | PROVIDERS: PCP Nurse Practitioner Primary Care; Visit Provider Registered Nurse | DX: Z77.21 Contact with and (suspected) exposure to potentially hazardous body fluids (principal) | CPT/HCPCS: 99213 ==

== ENCOUNTER → 2024-04-17 11:40 | Outpatient (BNVA) | payer OTHER, SELFPAY | PROVIDERS: PCP Nurse Practitioner Primary Care | DX: Z77.21 Contact with and (suspected) exposure to potentially hazardous body fluids (principal) | CPT/HCPCS: 80048; 82150; 84450; 84460; 85025; 99211 ==

== ENCOUNTER → 2024-05-01 12:21 | Outpatient (BNVA) | payer OTHER, SELFPAY | PROVIDERS: PCP Nurse Practitioner Primary Care | DX: Z77.21 Contact with and (suspected) exposure to potentially hazardous body fluids (principal) | CPT/HCPCS: 82150; 82565; 84450; 84460; 85025; 99213 ==

== ENCOUNTER → 2024-05-14 11:32 | Outpatient (BNVA) | payer OTHER, SELFPAY | PROVIDERS: PCP Nurse Practitioner Primary Care | DX: Z77.21 Contact with and (suspected) exposure to potentially hazardous body fluids (principal) | CPT/HCPCS: 84450; 84460; 86706; 87389; 99211 ==

== ENCOUNTER → 2024-07-07 11:35 | Outpatient (BNVA) | payer OTHER, SELFPAY | PROVIDERS: PCP Nurse Practitioner Primary Care | DX: Z77.21 Contact with and (suspected) exposure to potentially hazardous body fluids (principal) | CPT/HCPCS: 84450; 84460; 86803; 87389; 99211 ==

== ENCOUNTER 2024-07-16 14:26 | Outpatient (REF) | payer OTHER, SELFPAY ==
[2024-07-16 16:47] LABS: Estimated Glomerular Filt Rate > 60
== END 2024-07-16 14:27 | disposition home or self-care (01) ==
LOC: HO.HHCL 14:26
PROVIDERS: Visit Provider Physician Assistant Medical
DX: Z77.21 Contact with and (suspected) exposure to potentially hazardous body fluids (principal)
CPT/HCPCS: 36415; 82565

== ENCOUNTER → 2024-10-07 11:54 | Outpatient (BNVA) | payer OTHER, SELFPAY | PROVIDERS: PCP Nurse Practitioner Primary Care | DX: Z77.21 Contact with and (suspected) exposure to potentially hazardous body fluids (principal) | CPT/HCPCS: 84450; 84460; 86803; 87389; 99211 ==

== ENCOUNTER 2024-10-13 17:54 | Outpatient (REF) | payer OTHER, SELFPAY | END 2024-10-13 17:55 | disposition home or self-care (01) | LOC: HO.HHCLNP 17:54 | PROVIDERS: Visit Provider Emergency Medicine | DX: R21 Rash and other nonspecific skin eruption (principal) | CPT/HCPCS: 36415; 87255 ==

== ENCOUNTER 2024-12-24 16:28 | Emergency (ER) | payer OTHER, SELFPAY ==
[2024-12-24 16:34] VITALS: BP 151/84; PULSE 80; RESP 20; TEMP 37; O2SAT 95; BMI 41.6
--- NOTE | 2024-12-24 16:36 | ED.SKABFB ---
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 He cleaned it right after. 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 up to date: yes Location: L hand Severity: mild Relieving factors: none Exacerbating factors: none Context: none Associated symptoms: denies other symptoms Treatments prior to arrival: other (cleaning the area and washing it well) Related Data Home Medications ?Medication ?Instructions ?Recorded ?Confirmed lisinopril 10 mg tablet 10 mg PO DAILY 02/14/24 03/11/24 Previous Rx's ?Medication ?Instructions ?Recorded ibuprofen 600 mg tablet 600 mg PO Q6H PRN pain #30 tabs 03/11/24 oxycodone-acetaminophen 5 mg-325 1 tab PO Q4-6H PRN pain #25 tabs 03/11/24 mg tablet (Percocet) emtricitabine 200 mg capsule 200 mg PO DAILY #30 caps 04/03/24 ondansetron 4 mg disintegrating 4 mg PO Q8H PRN nausea 10 days #30 04/03/24 tablet tabs raltegravir 400 mg tablet 400 mg PO BID #60 tabs 04/03/24 tenofovir disoproxil fumarate 300 300 mg PO DAILY #30 tabs 04/03/24 mg tablet Allergies Allergy/AdvReac Type Severity Reaction Status Date / Time Penicillins [PENICILLINS] Allergy Unknown RASH Verified 12/24/24 16:37 SEAFOOD Allergy Unknown UNKNOWN Uncoded 03/26/24 10:25 Review of Systems Review of Systems: Constitutional : No Fever, No Chills, Cardiovascular : No Chest Pain, No SOB Respiratory : No Dyspnea Gastrointestinal : No abdominal pain Musculoskeletal : No Joint Swelling Skin : No rash, no laceration Neuro : No Weakness, No Numbness all other systems reviewed and negative PMFSH Past Medical History Attestation statement: The following information was validated with the patient. Source: old records reviewed Medical History Sacrococcygeal pilonidal cyst No known health problems Surgical History History of excision of pilonidal cyst (~03/11/24) Hx of tonsillectomy History of incision and drainage Social History Social History Patient Tobacco Use Status: Never used Tobacco Advance Directives: No Advance Directives Information Provided: No Do you have a plan to hurt others: No Plan Physical Exam Vital Signs: Vital Signs: Last Vital Signs Temp 98.6 F 12/24/24 18:08 Pulse 80 12/24/24 18:08 Resp 20 12/24/24 18:08 BP 151/84 H 12/24/24 18:08 Pulse Ox 95 12/24/24 18:08 O2 Del Method Room Air 12/24/24 18:08 BMI result Body Mass Index 41.6 Appearance: Alert. Oriented X3. No acute distress. Eyes: Pupils equal, round and reactive to light. ENT: Pharynx normal. Neck: Normal inspection. CVS: Pulses normal. Respiratory: No respiratory distress. Abdomen: atraumatic Skin: Skin warm and dry. Normal skin color. Extremities: No lower extremity edema. I see no puncture or wound on left hand where he felt prick Neuro: Oriented X 3. No motor deficit. No sensory deficit. CN2-12 intact Course Course Course Narrative: This is a Rapid Medical Exam performed in triage by Yumiko Ríos PA-C. Full HPI, ROS and PE to be performed by primary ED provider. 19-year-old male presenting to the ED c/o left hand accidental needle stick s/p bringing out bio-hazard bag and being accidentally stuck. Unknown source of needle stick. Patient up-to-date on vaccinations PE: No appreciable open wound Plan: Labs Medications Administered Discontinued Medications Generic Name Dose Route Start Last Admin Trade Name Freq PRN Reason Stop Dose Admin Raltegravir/Emtricitabine/Tenofovir 1 kit 12/24/24 17:55 12/24/24 18:13 Post Exposure Medication Kit PO 12/24/24 17:56 1 kit ONCE ONE Administration Medical Decision Making Medical Decision Making MDM Narrative: 19 yo male with reported needlestick injury at work after review of inoculation and population his risk is .0002% after long discussion he is still asking for post exposure meds though risk is low we did discuss risks outweigh the benefits. Differential Diagnosis Differential Diagnoses: The differential diagnosis associated with the presentation includes needlestick Lab Data [facility] Lab Attestation statement: I reviewed the patient's lab results. 12/24/24 17:36 12/24/24 17:36 Labs: Lab Results 12/24/24 Range/Units 17:36 WBC 11.3 H (4.8-10.8) X10*3/uL RBC 5.57 (4.60-5.80) X10*6/uL Hgb 15.9 (14.0-18.0) g/dl Hct 46.0 (42.0-52.0) % MCV 82.6 (80.0-98.0) fL MCH 28.5 (27.0-33.0) pg MCHC 34.6 (31.0-36.0) g/dl RDW 11.6 (11.0-16.0) % Plt Count 285 (160-400) X10*3/uL MPV 10.2 (9.4-12.4) fL Immature Gran % (Auto) 0.4 (0.0-0.4) % Neut % (Auto) 63.9 (45-73) % Lymph % (Auto) 27.1 (20-40) % [place] % (Auto) 6.5 (2-11) % Eos % (Auto) 1.4 (0-4) % Baso % (Auto) 0.7 (0-2) % Lymph # (Auto) 3.1 (1.2-4.9) X10*3/uL [place] # (Auto) 0.7 (0.1-1.2) X10*3/uL Eos # (Auto) 0.2 (0.0-0.4) X10*3/uL Baso # (Auto) 0.1 (0.0-0.2) X10*3/uL Abs Immat Gran (auto) 0.05 H (0.00-0.03) X10*3/uL Absolute Neuts (auto) 7.2 (2.0-8.3) x10*3/uL Absolute Nucleated RBC 0.000 (0.0-0.012) X10*3/uL Nucleated RBC % (auto) 0.0 (0.0-0.2) /100WBC Sodium 139 (135-145) mmol/L Potassium 4.3 (3.3-5.1) mmol/L Chloride 104 (96-108) mmol/L Carbon Dioxide 27 (22-29) mmol/L Anion Gap 12 (12-20) BUN 15 (9-16) mg/dL Creatinine 0.98 (0.5-1.4) mg/dL Estim Creat Clear Calc 135.1 Estimated GFR > 60 Random Glucose 89 (60-115) mg/dL Calcium 9.5 (8.4-10.2) mg/dL Total Bilirubin 0.5 (0.0-1.0) mg/dL Direct Bilirubin 0.1 (0.0-0.5) mg/dL AST 25 (5-37) U/L ALT 36 (0-40) U/L Alkaline Phosphatase 91 (39-117) U/L Total Protein 8.3 H (6.5-8.0) g/dL Albumin 4.6 (3.5-5.0) g/dL External Record Review External record reviewed: Outpatient record Prescription Management I considered prescription management with: Antiviral (at his request even after long discussion) Discharge Plan Discharge Clinical Impression: Accidental hypodermic needlestick injury Patient Disposition: Home, Self-Care Instructions: Needle Stick Injuries (ED) Additional Instructions: we will call you with any abnormal labs HIV test returns back in 24 to 48 hours you have a .0002% chance of any transmission post exposure meds are not indicated you requested post exposure kit - there are side effects please follow up with [facility] for continued medications. you have to start these medications and continue them if you cannot get into [facility] please call your primary care doctor please repeat labs in 3 months with our [facility] things to monitor if unexplained fevers, weight loss, yellow eyes - seek care if this happens. Prescriptions: No Action oxycodone-acetaminophen [Percocet] 5-325 mg tablet 1 tab PO Q4-6H PRN (Reason: pain) Qty: 25 0RF Rx Instructions: Partial Fill upon patient request. ibuprofen 600 mg tablet 600 mg PO Q6H PRN (Reason: pain) Qty: 30 0RF lisinopril 10 mg tablet 10 mg PO DAILY tenofovir disoproxil fumarate 300 mg tablet 300 mg PO DAILY Qty: 30 0RF emtricitabine 200 mg capsule 200 mg PO DAILY Qty: 30 0RF ondansetron 4 mg tablet,disintegrating 4 mg PO Q8H PRN (Reason: nausea) 10 Days Qty: 30 0RF raltegravir 400 mg tablet 400 mg PO BID Qty: 60 0RF Referrals: [facility] [Provider Group] (call tomorrow to follow up) Interventions: ED Discharge Assessment Last Done: 12/24/24 18:08 Discharge Date/Time: 12/24/24 18:09 Print Language: Taiwanese
[2024-12-24 17:39] LABS: MANUAL DIFF FLAG NO
[2024-12-24 17:55] LABS: Alanine Aminotransferase 36 U/L (0-40); Albumin Level 4.6 g/dL (3.5-5.0); Alkaline Phosphatase 91 U/L (39-117); Anion Gap 12 (12-20); Aspartate Amino Transferase 25 U/L (5-37); Bilirubin Direct 0.1 mg/dL (0.0-0.5); Bilirubin Total 0.5 mg/dL (0.0-1.0); Blood Urea Nitrogen 15 mg/dL (9-16); Calcium 9.5 mg/dL (8.4-10.2); Carbon Dioxide 27 mmol/L (22-29); Chloride 104 mmol/L (96-108); Creatinine Clr Calc Pharmacy 135.1; Estimated Glomerular Filt Rate > 60; Glucose Random 89 mg/dL (60-115); Potassium 4.3 mmol/L (3.3-5.1); Sodium 139 mmol/L (135-145); Total Protein 8.3 g/dL (6.5-8.0)
[2024-12-24 18:06] LABS: Basophils Absolute Auto 0.1 X10*3/uL (0.0-0.2); Basophils Percent Auto 0.7 % (0-2); Eosinophils Absolute Auto 0.2 X10*3/uL (0.0-0.4); Eosinophils Percent Auto 1.4 % (0-4); Hemoglobin 15.9 g/dl (14.0-18.0); Imm Gran Abs Auto 0.05 X10*3/uL (0.00-0.03); Imm Gran Pct Auto 0.4 % (0.0-0.4); Lymphocytes Absolute Auto 3.1 X10*3/uL (1.2-4.9); Lymphocytes Percent Auto 27.1 % (20-40); Mean Corpuscular HGB Conc 34.6 g/dl (31.0-36.0); Mean Corpuscular Hemoglobin 28.5 pg (27.0-33.0); Mean Corpuscular Volume 82.6 fL (80.0-98.0); Mean Platelet Volume 10.2 fL (9.4-12.4); Monocytes Absolute Auto 0.7 X10*3/uL (0.1-1.2); Monocytes Percent Auto 6.5 % (2-11); Neutrophils Absolute Auto 7.2 x10*3/uL (2.0-8.3); Neutrophils Percent Auto 63.9 % (45-73); Platelet Count 285 X10*3/uL (160-400); Red Blood Count 5.57 X10*6/uL (4.60-5.80); Red Cell Distribution Width 11.6 % (11.0-16.0); White Blood Count 11.3 X10*3/uL (4.8-10.8)
[2024-12-24 18:08] VITALS: BP 151/84; PULSE 80; RESP 20; TEMP 37; O2SAT 95
[2024-12-24] MEDS: Post Exposure Medication Kit 1 KIT PO (18:13)
[2024-12-25 06:13] LABS: HBc Num1 0.19 S/CO (0.00-0.79); HBsAGNum1 0.29 S/CO (0.00-0.99); HIV AB/AG Nonreactive (Nonreactive); HIV Num 1 0.05 S/CO (0.00-0.99); Hepatitis B Core Antibody Nonreactive (Nonreactive); Hepatitis B Surface Antigen Negative (Negative); ~HepC Num1 0.62 S/CO (0.00-0.79); ~Hepatitis C Antibody Nonreactive (Nonreactive)
== END 2024-12-24 18:09 | disposition home or self-care (01) ==
PROVIDERS: Physician Assistant; Emergency Provider Emergency Medicine; PCP Nurse Practitioner Primary Care
DX: S61.432A Puncture wound without foreign body of left hand, initial encounter (principal); Y28.9XXA Contact with unspecified sharp object, undetermined intent, initial encounter; Y93.9 Activity, unspecified; Y92.9 Unspecified place or not applicable; Y99.0 Civilian activity done for income or pay; Z20.828 Contact with and (suspected) exposure to other viral communicable diseases
CPT/HCPCS: 36415; 80048; 80076; 85025; 86704; 86803; 87340; 87389; 99282; 99283

== ENCOUNTER → 2024-12-25 10:56 | Outpatient (BNVA) | payer OTHER, SELFPAY | PROVIDERS: PCP Nurse Practitioner Primary Care; Visit Provider Physician Assistant | DX: Z77.21 Contact with and (suspected) exposure to potentially hazardous body fluids (principal) | CPT/HCPCS: 99204 ==

== ENCOUNTER 2025-06-29 08:51 | Outpatient (AMB) | payer OTHER, SELFPAY ==
--- NOTE | 2025-06-29 09:17 | MHC.OFFVIS ---
Intake Visit Reasons: Vasectomy Consult Intake Note: PT PRESENTS FOR: VASECTOMY CONSULT UROLOGY MEDICATIONS: NONE BLOOD THINNERS: NONE Seat Scooper Machine Required: No Accompanied by: Self / Same As Patient Allergies Penicillins (PENICILLINS) Allergy (Unknown, Verified 06/29/25 11:12) RASH SEAFOOD Allergy (Unknown, Uncoded 06/29/25 11:12) UNKNOWN Medication List - Last Reconciled 06/29/25 by EMMETT Doshi-CANDICE emtricitabine 200 mg PO DAILY HPI Comments Details: Jany is a very pleasant 20-year-old male patient of Dr. Wesley. He presents to the office today for - vasectomy evaluation Vasectomy evaluation The patient presents for vasectomy consultation.? 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 Vasectomy as intended as a permanent form of control. Printed information and literature was provided to the patient. Overall there is a one in 2500 failure rate. This can occur at any time after vasectomy. Risks were discussed highlighting hematoma, spermatocele, epididymal congestion, development of sperm antibodies, and development of chronic pain estimated between 1-5%. The procedure was reviewed in detail. Anatomical diagrams of the male genitalia were used to explain the location of the vas deferens. The vas deferens will be transected, the proximal end will be cauterized, a metal clip would be applied to separate the 2 vas deferens ends. It was explained the procedure will be done in the office and takes approximately 10-15 minutes. Less common problems that arise with vasectomy include hematoma, bleeding, allergic reaction to anesthetic, epididymal infection, epididymal congestion, scrotal discomfort, spermatic leak, spermatic granuloma and the possibility of antisperm antibodies. He understands these risks and wishes to proceed. Consent was signed at the office today. He also understands that it takes 12 weeks for sperm to fully clear the system. He will need to provide a semen sample at 12 weeks and if this is not clear a 2nd sample at 16 weeks. Medical clearance to stop using protection will only be provided if he satisfies published criteria for sperm clearance. [facility] Medical History Sacrococcygeal pilonidal cyst No known health problems Surgical History History of excision of pilonidal cyst (~03/11/24) Hx of tonsillectomy History of incision and drainage Social History Patient Tobacco Use Status: Never used Tobacco Review of Systems Const All systems reviewed & are unremarkable except as noted in HPI and below Physical Exam Const General: cooperative, healthy appearing, comfortable, no acute distress, well developed, alert and awake Orientation/consciousness: patient oriented x3 Limitations: no limitations HEENT Head: Yes normal to inspection, Yes normocephalic and Yes atraumatic Ears: hearing grossly normal bilaterally Eyes General: appearance normal, both eyes and all related structures Neck Neck: Yes normal visual inspection and Yes trachea midline Chest Chest palpation & inspection: normal inspection of the chest Resp Effort & Inspection: normal respiratory effort and able to speak in complete sentences Cardio Rate: regular rate GI Inspection: Yes normal to inspection General: Yes no CVA tenderness Back/Spine/Pelvis Back: no CVA tenderness Skin General skin exam: no rashes or lesions noted Neuro General: patient oriented x3 Extrem General: Yes normal to inspection Psych Appearance: grossly normal and well kempt Mental Status: mental status grossly normal Speech and movement: Normal speech and movement present and Clear speech present Affect: normal affect Attitude: cooperative Thought process: Normal thought process present Thought content: Normal thought content present Insight: Fair insight present (Psych) Judgement: Fair judgement present (Psych) Assessment & Plan Assessment & Plan (1) Vasectomy evaluation: Code(s): Z30.09 - Encounter for other general counseling and advice on contraception Category: Medical (2) Anxiety about health: Code(s): R45.89 - Other symptoms and signs involving emotional state Category: Medical Plan Vasectomy was discussed in detail; risks and benefits; as noted above All questions were answered Consent obtained. Prescriptions provided; we discussed importance of bringing medication to office day of procedure We discussed semen analysis in office verses fellows kit. Will schedule for vasectomy Follow-up per doctor's orders; or sooner with any issues, concerns, and or questions. Medications: New tramadol Bringing medication to office day of procedure 50 mg PO Q8H PRN 9 tabs 0RF pain 3 days N43.3 - Hydrocele, unspecified diazepam (Valium) Bringing medication to office day of procedure 2 mg PO DAILY 2 tabs 0RF anxiety R45.89 - Other symptoms and signs involving emotional state Patient Instructions: The patient had an opportunity to ask questions regarding the treatment plan. All questions were answered. Physical exam, labs, and imaging were discussed and reviewed in detail. As well as risks, benefits, and discussion of treatment choices. No major barriers to understanding were identified. The patient expressed understanding and agreement with the above treatment plan. The patient was made aware they should contact our office by phone for worsening of their current condition, the appearance of new symptoms, or with any questions or concerns. Compliance is encouraged with any medications and follow up testing that is ordered. It is a privilege to be allowed the opportunity to participate in? your urological care.? Again, if you have any questions or concerns If you have any questions or concerns please do not hesitate to contact me. The office is [phone]. This note is constructed using voice recognition software. While every effort has been made to ensure accuracy motor coach bus driver errors may have been included. Yours sincerely, ELIZABETH Doshi Coding Level of Care Code New Pt Level 4 (85853) Diagnoses Vasectomy evaluation Z30.09 Anxiety about health R45.89
--- OUTSIDE RECORDS SUMMARY | 2025-06-29 09:20 | XMS_ITS | Encounter Summary ---
Author Organization [employer] Address [address] [facility] 7 [place] [address] Care Team Providers Care Family Engagement Specialist Name Role Phone Felicia Kim Primary Care Provider [phone] Reason for Visit * Reason Onset Date Comments Med Refill 05/14/2025 Encounter Details Date Type Department Care Team (Late st Contact Info) Description 05/14/2025 Refill [facility] MED[facility]INE [address] [place], [place] [phone] Felicia Kim ANP [address] [place], [place] [phone] BMI 38.0-38.9,adult; Class 3 severe obesity with serious comorbidity and body mass index (BMI) of 40.0 to 44.9 in adult, unspecified obesity type Social History Tobacco Use Types Packs/Day Years Used Date Smoking Tobacco: Never Smokeless Tobacco: Never Alcohol Use Standard Drinks/Week Comments Never 0 (1 standard drink = 0.6 oz pur e alcohol) Depression Answer Date Recorded Patient Health Questionnaire-9 Score 0 02/18/2025 Patient Health Questionnaire-9 Score 0 02/18/2025 Last PHQ-9: Questionnaire Data Not on file 0 02/18/2025 Housing Stability Answer Date Recorded What is your housing situation today? I have juancarlos riojas 02/18/[address] you li ve. Do you have problems with any of the following? None of the above 02/18/2025 Food Insecurity Answer Date Recorded Within the past 12 months, y ou worried that your food would run out before you got money to buy more: Never True 02/18/2025 Within the past 12 months,th e food you bought just didn't last and you didn't have enough money to get more: Never True 07/2025 Transportation Answer Date Recorded In the past 12 months, has l ack of transportation kept you from medical appts, meetings, work or from getting things needed for daily living? No 02/18/2025 Utilities Answer Date Recorded In the past 12 months, has t he electric, gas, oil or water company threatened to shut off services in your home? No 02/18/2025 Depression Answer Date Recorded Patient Health Questionnaire-2 Score 0 02/18/2025 Internet Access Answer Date Recorded Internet Access Q1 Yes 02/18/2025 Internet Access Q2 Not on file 02/18/2025 Sex and Gender Information Value Date Recorded Sex Assigned at Male 09/11/2022 10:17 AM EDT Legal Sex Male 10:17 AM EDT Gender Identity Male 09/11/2022 10:17 AM EDT Sexual Orientation Straight 09/11/2022 10 :17 AM EDT documented as of this encounter Plan of Treatment Not on file documented as of this encounter Visit Diagnoses Diagnosis BMI 38.0-38.9,adult Class 3 severe obesity with serious comorbidity and body mass index (BMI) of 40.0 to 44.9 in adult, unspecified obesity type documented in this encounter Additional Health Concerns Assessment Noted Time PHQ-9 Depression Total Score: 0 02/19/20 25 3:51 PM EDT documented as of this encounter Care Teams Family Engagement Specialist Relationship Specialty Start Date End Date Felicia Kim ANP [address] [place] [id number] PCP - General Family Medicine 06/25/23 documented as of this encounter
== END 2025-06-29 10:04 | disposition home or self-care (01) ==
LOC: HO.HUSH 08:52
PROVIDERS: PCP Family Medicine; Visit Provider Nurse Practitioner Family
DX: Z30.09 Encounter for other general counseling and advice on contraception (principal); R45.89 Other symptoms and signs involving emotional state
CPT/HCPCS: 99204

== ENCOUNTER → 2025-06-29 08:51 | Outpatient (BNVA) | payer OTHER, SELFPAY | PROVIDERS: PCP Family Medicine; Visit Provider Nurse Practitioner Family | DX: Z30.09 Encounter for other general counseling and advice on contraception (principal); R45.89 Other symptoms and signs involving emotional state | CPT/HCPCS: 99202 ==

== ENCOUNTER 2025-08-26 13:55 | Outpatient (AMB) | payer OTHER, SELFPAY ==
--- NOTE | 2025-08-26 14:02 | A.OFFVIS_ITS ---
Intake Visit Reasons: vasectomy Intake Note: PT PRESENTS FOR: VASECTOMY UROLOGY MEDICATIONS: NONE BLOOD THINNERS: NONE Fitting Room Checker Required: No Accompanied by: Self / Same As Patient Allergies Penicillins (PENICILLINS) Allergy (Unknown, Verified 08/26/25 14:02) RASH SEAFOOD Allergy (Unknown, Uncoded 06/29/25 11:12) UNKNOWN HPI Comments Details: Jany is a very pleasant 20-year-old male patient of Dr. Wesley. He presents to the office today for - vasectomy procedure Vasectomy procedure The patient presents for vasectomy procedure.? 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 [facility] Medical History Sacrococcygeal pilonidal cyst No known health problems Surgical History History of excision of pilonidal cyst (~03/11/24) Hx of tonsillectomy History of incision and drainage Social History Patient Tobacco Use Status: Never used Tobacco Review of Systems Const Denies chills and Denies fever(s) Card Reports no additional complaints and Denies syncope Resp Denies cough GI Denies abdominal pain and Denies heartburn Reports as per HPI and Denies change in libido Neuro Denies syncope Psych Denies change in libido Endo Denies change in libido Physical Exam Const General: cooperative, healthy appearing, comfortable and no acute distress Orientation/consciousness: patient oriented x3 HEENT Face and sinus: Yes normal facial exam Mouth: moist mucous membranes Neck Neck: Yes normal visual inspection, Yes full ROM and Yes trachea midline Chest Chest palpation & inspection: normal inspection of the chest Resp Effort & Inspection: normal respiratory effort, able to speak in complete sentences and no respiratory distress GI Inspection: Yes normal to inspection Back/Spine/Pelvis Cervical Spine: normal cervical lordosis Thoracic/Lumbar Spine: thoracic and lumbar spine normal to inspection Skin General skin exam: no rashes or lesions noted Neuro General: patient oriented x3, gait normal, tone normal and moves all extremities Extrem General: Yes normal to inspection and Yes capillary refill normal Office Procedures Vasectomy Details: Preoperative diagnosis: Anxiety regarding Postoperative diagnosis: Anxiety regarding unplanned Procedure: Bilateral vasectomy Informed consent had been completed. Preoperative and postoperative instructions were provided to the patient. The patient has transportation home identified at the completion of the procedure. Anti-anxiolytic prescription medication had been taken after consent verification and all questions answered. A limited amount of pain medication was also provided. The penis was elevated using a rubber band that was attached to the patient's shirt. Both vasa were palpated through the skin using a 3 finger technique and the penoscrotal junction was prepped with Betadine. After Betadine application the left vas was elevated using a 3 finger grasping technique. 1% lidocaine was used to create a subdermal bubble. Further anesthetic was then advanced using the 25-gauge needle along the vasa in a proximal fashion. Approximately 2 minutes were allowed to for local anesthetic uptake. Using the sharp spreading instrument the scrotal skin was spread longitudinally in line with the vasa until the subdermal layer had been divided. The vasa was then elevated from the scrotum using a ring clamp. Care was taken to elevate the superior portion of the vasa by rotating the ring clamp in a caudad direction. The battery powered cautery was used to divide the vasal sheath in a l ongitudinal direction on the exposed vasa and to strip the vasal sheath from the vasa. The sharp spreading instrument was used to further expose the vas within the vasal sheath. A 2nd narrower ring clamp was placed on the exposed vas and used to lift the vas from the vasal sheath. The cautery was used to divide vasal attachments and allow full exposure of a small loop of vasa. The sharp spreading instrument was then used to create a tunnel under the vasa and spread to allow the blood vessels of the vasa to retract from the vasa. A mosquito clamp was placed on the proximal portion of the vas. The battery- powered cautery was used to make a partial division in the proximal vas and then inserted in order to cauterize the proximal end of the vas. This was then cut and allowed to retract into the vasal sheath. The mosquito was then used to twist the vasa 180 degrees creating a fascial interposition as the proximal portion of the vas retracted in the vasal sheath. Using a 4-0 chromic suture the fascial interposition was sutured closed. The distal portion of the vas was then cut in order to obtain a segment of vasa. An open distal vas is preferred for minimizing postprocedure pain. The vasa were allowed to retract back into the scrotum. A small snap was then used to approximate the skin edges and allow hemostasis without placement of a suture. A similar procedure was repeated on the right side. He tolerated the procedure well. Triple antibiotic was applied. A gauze was applied. An ice pack was applied to assist with minimizing swelling. Postoperative instructions were confirmed. He understands the need to continue to use control methods. A semen sample should be brought for inspection under the microscope in 10-12 weeks. CPT 07613 Informed consent given: Yes Informed consent signed: Yes Time out checklist: patient, procedure, site marked/identified, positioning of patient, supplies available, allergies confirmed and team agrees on procedure Anesthetic used: other Specimens: vas segments not sent to pathology [id number] - Vasectomy Assessment & Plan Assessment & Plan (1) Anxiety about health: Code(s): R45.89 - Other symptoms and signs involving emotional state Category: Medical Plan Three-month follow-up check semen analysis Patient Instructions: This note is constructed using voice recognition software. While every effort has been made to ensure accuracy quick service technician errors may have been included. Imaging studies, laboratory and physical exam results were discussed and reviewed in detail. No major barriers to patient understanding were identified. An opportunity to ask questions regarding the treatment plan was provided. All questions were answered. The patient expressed understanding and agreement with the above treatment plan. The patient is aware they should contact our office by phone for worsening of their current condition or the appearance of new urologic symptoms. Compliance is encouraged with any medications and followup testing that is ordered. It is a privilege to participate in the urologic care of your patient. If you have any questions or concerns regarding treatment for the above conditions, or other urologic issues, please do not hesitate to contact me. The office telephone contact is [phone]. Sincerely, Dr Justin Chandra MD, [facility] - Urology Compassionate Specialist Care for the Genitourinary System Coding Level of Care Code Procedure Only Diagnoses Anxiety about health R45.89 CPT Codes Office Procedure - CPT: 10965 - Vasectomy ([id number])
--- OUTSIDE RECORDS SUMMARY | 2025-08-26 17:42 | XMS_ITS | Encounter Summary ---
Author Organization [employer] Address [address] [facility] 7 [place] [address] Care Team Providers Care Head Of Commission Department Name Role Phone Felicia Kim Primary Care Provider [phone] Encounter Details Date Type Department Care Team ([facility] st Contact Info) Description 02/04/2024 Orders Only [facility] [address] [place], [place] [phone] Felicia Kim ANP [address] [place], [place] [phone] Soft tissue infection (Primary Dx) Social History Tobacco Use Types Packs/Day Years Used Date Smoking Tobacco: Never Smokeless Tobacco: Never Alcohol Use Standard Drinks/Week Comments Never 0 (1 standard drink = 0.6 oz pur e alcohol) Depression Answer Date Recorded Patient Health Questionnaire-9 Score 0 01/11/2023 Housing Stability Answer Date Recorded What is your housing situation today? I do not have housing (Staying with others, in a hotel, in a fci, living outside on the street, on a beach, in a car, or in a park 12/18/[address] you li ve. Do you have problems with any of the following? None of the above 12/18/2023 Food Insecurity Answer Date Recorded Within the past 12 months, y ou worried that your food would run out before you got money to buy more: Never True 09/17/2023 Within the past 12 months,th e food you bought just didn't last and you didn't have enough money to get more: Never True 04/2023 Transportation Answer Date Recorded In the past 12 months, has l ack of transportation kept you from medical appts, meetings, work or from getting things needed for daily living? No 09/17/2023 Utilities Answer Date Recorded In the past 12 months, has t he electric, gas, oil or water company threatened to shut off services in your home? No 09/17/2023 Depression Answer Date Recorded Patient Health Questionnaire-2 Score 0 01/11/2023 Sex and Gender Information Value Date Recorded Sex Assigned at Male 09/11/2022 10:17 AM EDT Legal Sex Male 10:17 AM EDT Gender Identity Male 09/11/2022 10:17 AM EDT Sexual Orientation Straight 09/11/2022 10 :17 AM EDT documented as of this encounter Plan of Treatment Not on file documented as of this encounter Visit Diagnoses Diagnosis Soft tissue infection- Primary Unspecified infectious and parasitic diseases documented in this encounter Additional Health Concerns Assessment Noted Time PHQ-9 Depression Total Score: 0 01/12/20 23 4:17 PM EST documented as of this encounter Care Teams Head Of Commission Department Relationship Specialty Start Date End Date Felicia Kim ANP [address] [place] [address] PCP - General Family Medicine 06/25/23 documented as of this encounter
--- OUTSIDE RECORDS SUMMARY | 2025-08-26 17:42 | XMS_ITS | Clinical Summary ---
Author Organization [employer] Address 75 [facility] 7 [place] [address] Care Team Providers Care Face Man Name Role Phone Felicia Kim МАРИЯ Primary Care Provider [phone] Allergies Active Allergy Reactions Criticality Noted Date Comments Penicillin V Unknown Shellfish Protein-Containing Drug Products Angioedema 05/10/2021 Medications EPINEPHrine (Epipen) 0.3 MG/0.3ML injection syringeIndicati ons:Seasonal allergies prn severe allergic reaction 2 each 2 01/12/20 23 Active ketoconazole (NIZOral) 2 % shampooIndicati ons:Tinea versicolor Apply topically Once per day. To back 240 mL 07/15/20 24 Active olmesartan (BENIcar) 20 MG tabletIndicatio ns:Primary hypertension Take 1 tablet (20 mg) by mouth Once per day. 90 tablet 3 02/19/20 25 026 Active triamcinolone (Kenalog) 0.1 % ointmentIndicat ions:Dry skin dermatitis Apply topically 2 times daily. To feet 80 g 1 02/19/20 25 Active fluticasone (Flonase) 50 MCG/ACT nasal sprayIndication s:Non-seasonal allergic rhinitis, unspecified trigger Administer 1-2 sprays into each nostril Once per day. Shake gently. Before first use, prime pump. After use, clean tip and replace cap. 16 g 2 04/13/20 25 026 Active mupirocin (Bactroban) 2 % ointmentIndicat ions:Superficia l laceration Use 2-3 times daily for 7d 22 g 05/07/20 25 Active Fluocinolone Acetonide Scalp 0.01 % oilIndications: Psoriasis of scalp Apply a thin film to scalp, massage into wet or dampened hair/scalp; cover with shower cap. Leave on overnight (or for at least 4 hours). Wash hair to remove. 118 mL 2 06/01/20 25 Active Tirzepatide-Lj ght Management (Zepbound) 7.5 MG/0.5ML solution auto-injectorIn dications:BMI 38.0-38.9,adult ,Class 3 severe obesity with serious comorbidity and body mass index (BMI) of 40.0 to 44.9 in adult, unspecified obesity type (HCC) Inject 0.5 mL (7.5 mg) under the skin 1 (one) time per week. 2 mL 2 08/17/20 25 Active Tirzepatide-Lj ght Management (Zepbound) 7.5 MG/0.5ML solution auto-injectorIn dications:BMI 38.0-38.9,adult ,Class 3 severe obesity with serious comorbidity and body mass index (BMI) of 40.0 to 44.9 in adult, unspecified obesity type (HCC) Inject 0.5 mL (7.5 mg) under the skin 1 (one) time per week. 2 mL 2 06/18/20 25 025 Discontinued(R eorder (will not trigger notification to Pharmacy)) Tirzepatide-Lj ght Management 5 MG/0.5ML solutionIndicat ions:BMI 38.0-38.9,adult ,Class 3 severe obesity with serious comorbidity and body mass index (BMI) of 40.0 to 44.9 in adult, unspecified obesity type (HCC) Inject 5 mg under the skin 1 (one) time per week. 2 mL 07/09/20 25 025 Discontinued(D ose adjustment) Active Problems Problem Noted Date Diagnosed Date BMI 40.0-44.9, adult (CMS/HCC) 11/21/2024 Herpes labialis 10/18/2024 Soft tissue infection 02/03/2024 Assessment & Plan (02/03/2024 5:10 PM EDT): CBG today 94 Pt w significant soft tissue induration in buttocks ,no clear abscess but concern w reported fever and chills and leukocytoses from recent ED visits -discussed w pt concern for worsening infection that seems to be rapidly extending , not sure at this time if there is any drainable collection but he will need to have STAT US to confirm. Discussed pt option for ED vs trial of clindamycin 300 mg QID + bactrim and pain control . Pt agreed to go to ED instead -pt understands importance of going to ED -I called today [facility] and inform about pt. -advised to f up here at [facility] in not improving after ED visit Hypertension 05/23/2023 Assessment & Plan (02/03/2024 5:09 PM EDT): -elevated BP despite taking BP meds Possible reactive in setting of infection -advised to f w PCP in 2 weeks Allergic to shellfish 01/11/2023 Seasonal allergies 01/11/2023 Obesity 07/30/2012 Encounters Date Type Department Care Team Description 08/19/2025 3:15 PM EDT Office Visit [facility] [address] [place] [phone] Felicia Kim ANP Class 2 severe obesity with serious comorbidity and body mass index (BMI) of 38.0 to 38.9 in adult, unspecified obesity type (Primary Dx); Encounter for immunization; Primary hypertension 08/19/2025 Travel 08/17/2025 Refill [facility] [address] [place] [address] Noemi Garibay, RN BMI 38.0-38.9,adult; Class 3 severe obesity with serious comorbidity and body mass index (BMI) of 40.0 to 44.9 in adult, unspecified obesity type (HCC) 07/14/2025 Telephone [facility] [address] [place] [address] Felicia Kim ANP Prior Authorization 07/09/2025 Telephone [facility] [address] [place] [phone] Felicia Kim ANP Prior Authorization 06/17/2025 Refill [facility] [address] [place] [phone] Felicia Kim ANP BMI 38.0-38.9,adult; Class 3 severe obesity with serious comorbidity and body mass index (BMI) of 40.0 to 44.9 in adult, unspecified obesity type 06/01/2025 Orders Only [facility] [address] [place] [address] Felicia Kim ANP Scalp psoriasis (Primary Dx); Psoriasis of scalp from Last 3 Months Immunizations Immunization Administration Dates Next Due DTaP 04/08/2008, 5,2004,03/29 DTaP / Hep B / IPV 2004 HPV 9-Valent 09/14/2016,05/11/2016,03/10/2016 Hep A, ped/adol, 2 dose 07/25/2011,07/19/2010 Hep B, Adolescent or Pediatric 2004,2003 Hib ([facility]) 05/04/2005, 4,2004,03/29 IPV 04/08/2008,2004,2004 Influenza Injectable Quadriv alant Preservative Free IIV4 MDCK 08/07/2023,08/01/2022 Influenza injectable quadriv alent preservative free 10/11/2021,08/18/2020,12/18/2018,11/27,09/14/2016,08/31/2015,08/28/2014 Influenza, IIV3, injectable 12/02/2009,1 01/09/2005,2004,10/20 Influenza, Split (incl. tammy fied surface antigen) 07/30/2012 Influenza, seasonal, injecta ble, preservative free 08/19/2025,07/23/2024 MMR 04/08/2008,01/19/2005 Meningococcal MCV4P ACYW-135 05/10/2021,03/10/20 16 Pfizer Covid-19 Vaccine 12+ 11/16/2021, 1,03/12/2021 Pneumococcal Conjugate PCV 7 05/04/2008, 2004,2004,03/29 Tdap 03/10/2016 Varicella 04/08/2008,01/19/2005 Social History Tobacco Use Types Packs/Day Years Used Date Smoking Tobacco: Never Smokeless Tobacco: Never Tobacco Cessation:Counseling Given: Not Answered Alcohol Use Standard Drinks/Week Comments Never 0 [...] Orientation Straight 09/11/2022 10 :17 AM EDT Last Filed Vital Signs Vital Sign Reading Time Taken Comments Blood Pressure 120/80 08/19/2025 3:16 PM EDT Pulse 73 08/19/2025 3:16 PM EDT Temperature 37.2 C (99 F) 08/19/2025 3:16 PM EDT Respiratory Rate 12 08/19/2025 3:16 PM EDT Oxygen Saturation 98% 08/19/2025 3:16 PM EDT Inhaled Oxygen Concentration - - Weight 104 kg (229 lb 4 oz) 08/19/2025 3:16 PM E DT Height 165.1 cm (5' 5 ) 08/19/2025 3:16 PM EDT Body Mass Index 38.15 08/19/2025 3:16 PM EDT Plan of Treatment Health Maintenance Due Date Last Done Comments Family Planning (PISQ) 01/17/2019 Meningococcal B Vaccine (1 of 2 - Standard) 2020 Chlamydia and Gonorrhea Screening 01/12/2024 01/11/2023 COVID-19 Vaccine ( season) 2025 11/16/2021, 04/02/2021, 03/12/2021 Alcohol/Substance Use Screening 11/18/2025 11/18/2024 Depression Screening 02/18/2026 02/18/2025, 02/19/20 25 SDOH Screening 02/18/2026 02/18/2025 DTaP/Tdap/Td Vaccines (7 - Td or Tdap) 03/10/2026 03/10/2016, 04/08/2008, 05/04/2005, Additional history exists Disability Screening 04/13/2026 04/13/2025 Tobacco Screening 08/19/2026 08/19/2025 Lipid Panel 04/25/2028 04/25/2023, 2021 Zoster Vaccines (1 of 2) 01/17/2054 RSV Patients and Patients Aged 60 years or older (1 - 1-dose 75+ series) 01/17/2079 Hepatitis B Vaccines Completed 2004, 2004, 2004 HIB Vaccines Completed 05/04/2005, 07/15, 2004, Additional history exists IPV Vaccines Completed 04/08/2008, 07/15, 2004, Additional history exists Pneumococcal Vaccine: Pediatrics (0 to 5 Years) and At-Risk Patients (6 to 49) Years Aged Out 05/04/2008, 2004, 2004, Additional history exists No longer eligible based on patient's age to complete this topic Hepatitis A Vaccines Completed 07/25/2011, 07/19/20 10 HPV Vaccines Completed 09/14/2016, 04/14, 03/10/2016 Meningococcal Vaccine Completed 05/10/2021, 016 HIV Screening Completed 12/24/2024, 03/13, 04/25/2023 Hepatitis C Screening Completed 12/24/2024 , 04/02/2024, 04/25/2023, Additional history exists Influenza Vaccine Completed 08/19/2025, , 08/07/2023, Additional history exists RSV under 20 months Aged Out No longe r eligible based on patient's age to complete this topic Rotavirus Vaccines Aged Out No longer eligible based on patient's age to complete this topic Procedures Procedure Name Priority Date/Time Associated Diagnosis Comments HEPATITIS C ANTIBODY Routine 12/24/2024 5:36 PM EST HIV 1/2 ANTIGEN/ANTIBODY, FOURTH GENERATION W/RFL Routine 12/24/2024 5:36 PM EST LIPID PANEL, STANDARD Routine 04/25/2023 3:22 PM EDT Obesity with body mass index (BMI) greater than 99th percentile for age in pediatric patient, unspecified obesity type, unspecified whether serious comorbidity present CHLAMYDIA/N. GONORRHOEAE RNA, TMA, UROGENITAL Routine 01/11/2023 10:37 AM EST from Last 3 Months or Most Recently Relevant to Health Maintenance Results * Hepatitis C Ab (12/24/2024 5:36 PM EST) Hepatitis C Antibody Nonreactive Nonreactive [facility] Comment:Antibodies to HCV no t detected; does not exclude early acuteHCV infection. 12/24/2024 5:36 PM EST 12/24/2024 5:36 PM EST us Generic External Data Provider LAB BLOOD ORDERAB LES Final Result [facility] [address] [place] [phone] * HIV-1/2 Antigen and Antibodies, Fourth Generation, with Reflexes (12/24/2024 5:36 PM EST) HIV AB/AG Nonreactive Nonreactive [facility] Comment:HIV-1 p24 Ag and/or HIV-1/HIV-2 Ab not detected.A test result that is nonreactive does not exclude thepossibility of exposure to or infection with HIV-1 and/orHIV-2. Nonreactive results in this assay for individualswith prior exposure to HIV-1 and/or HIV-2 may be due toantigen and antibody levels that are below the limit ofdetection of this assay.[facility] HIV Ag/Ab Combo assay result andsupplemental assay results should be interpreted inconjunction with the patient's clinical presentation,history and other laboratory results. If the results areinconsistent with clinical evidence, additional testing issuggested to confirm the result. 12/24/2024 5:36 PM EST 12/24/2024 5:36 PM EST us Generic External Data Provider LAB BLOOD ORDERAB LES Final Result [facility] [address] [place] [phone] * (ABNORMAL) Lipid Panel, Standard (04/25/2023 3:22 PM EDT) Pathologist [facility] Cholesterol, Total 171(H) <170 mg/dL [facility] [place] [email or web address] HDL Cholesterol 43(L) >45 mg/dL Q[facility] [employer] [place] Triglycerides 96(H) <90 mg/dL [facility] [place] [employer] LDL Cholesterol 109 <110 mg/dL (calc) [facility] [place] [email or web address] Comment: LDL-C is now calculated using the Dilan calculation, which is a validated novel method providing better accuracy than the Friedewald equation in the estimation of LDL-C. Conner RAMIREZ et al. LIZ. 2013;310(19): 2922-1912 (http://education.[employer].[facility]/faq/ELU352) Chol/HDLC Ratio 4.0 <5.0 (calc) [facility] [place] [email or web address] Non-HDL Cholesterol 128(H) <120 mg/dL (calc) [facility] [place] [email or web address] Comment: For patients with diabetes plus 1 major ASCVD risk factor, treating to a non-HDL-C goal of <100 mg/dL (LDL-C of <70 mg/dL) is considered a therapeutic option. Blood Venous blood specimen / Unknown 04/25/2023 3:22 PM EDT 04/25/2023 3:23 PM EDT us Donato Braga MD LAB BLOOD ORDERABLES Final Resu lt Performing Organization Address [facility] de Phone Number [facility] [address], [place] [address] [facility] [address] [place] [address] * Chlamydia/N. Gonorrhoeae RNA, TMA, Urogenitial (01/11/2023 10:37 AM EST) Chlamydia trachomatis RNA, TMA, Urogenital NOT DETECTED NOT DETECTED [facility] [place] [email or web address] Neisseria gonorrhoeae RNA, TMA, Urogenital NOT DETECTED NOT DETECTED [facility] [place] [email or web address] Comment [facility] [place] [employer] Comment: The analytical performance characteristics of this assay, when used to test SurePath(TM) specimens have been determined by [facility]. The modifications have not been cleared or approved by the FDA. This assay has been validated pursuant to the CLIA regulations and is used for clinical purposes. For additional information, please refer to https://education.[employer].[facility]/faq/LEG599 (This link is being provided for information/ educational purposes only.) 01/11/2023 10:3 7 AM EST 01/12/2023 8:52 PM EST Narrative [facility] - 01/13/2023 8:45 AM EST FASTING: UNKNOWN us Donato Braga MD LAB MICROBIOLOGY - GENERAL [facility] Final Result Performing Organization Address City/[facility] Co de Phone Number [facility] [address] [facility], [address], [place] [address] [facility] [address] [facility], ([address]) [place] [address] from Last 3 Months or Most Recently Relevant to Health Maintenance Insurance [facility] Care Teams Face Man Relationship Specialty Start Date End Date Felicia Kim ANP [address] [place] [phone] PCP - General Family Medicine 06/25/23
--- OUTSIDE RECORDS SUMMARY | 2025-08-26 17:42 | XMS_ITS | Encounter Summary ---
Author Organization [employer] Address 75 [facility] 7 [place] [address] Care Team Providers Care Bore Miner Operator Name Role Phone Felicia Kim Primary Care Provider [phone] Reason for Visit * Reason Comments Med Refill Encounter Details Date Type Department Care Team ([facility] st Contact Info) Description 09/25/2024 Refill [facility] [address] [place], [place] [phone] Felicia Kim ANP [address] [place] [address] Hypertension, unspecified type Social History Tobacco Use Types Packs/Day Years Used Date Smoking Tobacco: Never Smokeless Tobacco: Never Alcohol Use Standard Drinks/Week Comments Never 0 (1 standard drink = 0.6 oz pur e alcohol) Depression Answer Date Recorded Patient Health Questionnaire-9 Score 0 05/13/2024 Patient Health Questionnaire-9 Score 0 05/13/2024 Last PHQ-9: Questionnaire Data Not on file 0 05/13/2024 Housing Stability Answer Date Recorded What is your housing situation today? I do not have housing (Staying with others, in a hotel, in a chcf, living outside on the street, on a [...] Date Recorded Patient Health Questionnaire-2 Score 0 05/13/2024 Sex and Gender Information Value Date Recorded Sex Assigned at Male 09/11/2022 10:17 AM EDT Legal Sex Male 10:17 AM EDT Gender Identity Male 09/11/2022 10:17 AM EDT Sexual Orientation Straight 09/11/2022 10 :17 AM EDT documented as of this encounter Plan of Treatment Not on file documented as of this encounter Visit Diagnoses Diagnosis Hypertension, unspecified type documented in this encounter Additional Health Concerns Assessment Noted Time PHQ-9 Depression Total Score: 0 05/13/20 24 11:49 AM EDT documented as of this encounter Care Teams Bore Miner Operator Relationship Specialty Start Date End Date Felicia Kim ANP [address] [place] [phone] PCP - General Family Medicine 06/25/23 documented as of this encounter
--- OUTSIDE RECORDS SUMMARY | 2025-08-26 17:42 | XMS_ITS | Encounter Summary ---
Author Organization [employer] Address 75 [facility] 7 [place] [address] Care Team Providers Care Recycling Operations Manager Name Role Phone Felicia Kim Primary Care Provider [phone] Reason for Visit * Reason Comments Med Refill Encounter Details Date Type Department Care Team ([facility] st Contact Info) Description 03/21/2025 Refill [facility] [address] [place], [place] [phone] Felicia Kim ANP [address] [place], [place] [phone] BMI 40.0-44.9, adult (CMS/HCC); Class 3 severe obesity with serious comorbidity [...] of this encounter Visit Diagnoses Diagnosis BMI 40.0-44.9, adult (CMS/HCC) (HCC) Class 3 severe obesity with serious comorbidity and body mass index (BMI) of 40.0 to 44.9 in adult, unspecified obesity type (HCC) documented in this encounter Additional Health Concerns Assessment Noted Time PHQ-9 Depression Total Score: 0 02/19/20 25 3:51 PM EDT documented as of this encounter Care Teams Recycling Operations Manager Relationship Specialty Start Date End Date Felicia Kim ANP [address] [place] [phone] PCP - General Family Medicine 06/25/23 documented as of this encounter
--- OUTSIDE RECORDS SUMMARY | 2025-08-26 17:42 | XMS_ITS | Data Portability ---
Author Organization [facility], Allergy Address [address] [place] [phone] Assessment Encounter Date Assessment Date Assessment LastModified by Organization Details LastModified Time 11/27/2024 11/27/2024 19yo male with subjective allergic rhinitis presents for evaluation left hearing loss. He reports this started 4 weeks ago without inciting event or illness. Exam demonstrates left serous effusion, confirmed with tympanometry. Audiogram with mild conductive hearing loss until 2kHz. Nasal endoscopy was normal without mass, polyp, or inflammation. Recommend autoinsufflation up to 10 times daily and Flonase two sprays once daily. Offered steroid course, but patient would like to started with supportive measures. He will return in 8 weeks if symptom persists. Patient also evaluated by Dr. Desir. selena Not available 11/27/2024 10:34:20 Plan of Treatment Reminders Order Date Submit Date Provider Last Modified By Organization Details Last Modified Time Details Appointments None record ed. Lab None record ed. Referral None record ed. Procedures None record ed. Surgeries None record ed. Imaging None record ed. Medication Orders None record ed. Patient TargetsNo targets recorded. Patient InstructionsNo instructions recorded. Reason for Referral None Reported. Problems Name Problem SNOMED Code Status Onset Date Resolution Date Notes Provider Name and Address Organization Details Recorded Time Conductive hearing loss [id number] Active URI LEE [address] [facility] [address], [place], [address] , [facility] - [facility] 09:30:10 Problem Notes None recorded. Procedures Surgical History Date Name Laterality Status Provider Name and Address Organization Details Recorded Time Comp Audio with Tymps - 74737 & [id number] completed URI LOW 100 [facility],[place] [address], [place], [phone], [facility] - [facility] 11/27/2024 09:23:51 5 Nasal Endoscopy completed SELINA KINNEY PA-C [address] [facility],[address], [phone], [place] - [facility] 11/27/2024 10:27:47 Imaging Results None recorded. Procedure Notes None recorded. Medical Equipment None Reported. Medications Name Sig Start Date Stop Date Status Note LastModified by Organization Details LastModified Time lisinopril 10 mg tablet TAKE 1 TABLET BY MOUTH EVERY DAY IN THE MORNING active Not Available Not Available No t Available ondansetron 4 mg disintegrating tablet DISSOLVE 1 TABLET ON TONGUE EVERY 8 HOURS FOR 10 DAYS NEEDED FOR NAUSEA active Not Available Not Available No t Available emtricitabine 200 mg-tenofovir disoproxil fumarate 300 mg tablet TAKE 1 TABLET BY MOUTH EVERY DAY active Not Available Not Available No t Available Isentress 400 mg tablet TAKE 1 TABLET BY MOUTH TWICE DAILY active Not Available Not Available No t Available Vitals Date Recorded Body height Body mass index (BMI) Body mass index (BMI) [Percentile] Per age and sex Body weight Provider Name and Address Organization Details Last Updated DateTime 11/27/2024 165.1 cm 40.8 kg/m2 99 % 913345.1 3 g Bernie Parrish [place] - [facility] 11/27/2024 09:58:49 Social History None recorded. Functional Status None recorded. Mental Status None recorded. Family History Nothing Reported. Medical History No medical history recorded. Past Encounters Encounter ID Performer Location Encounter Start Date Encounter Closed Date Diagnosis/Indication Diagnosis SNOMED-CT Code Diagnosis ICD10 Code Diagnosis IMO Codes Diagnosis Note [id number] SELINA KINNEY PA-C [facility] [address] [place] [address] 11/27/2024 09:03:19 11/27/2024 10:27:38 Conductive hearing loss 28688495 H90.12 Audiologic al evaluation results:Ri ght ear:Normal auditory thresholds with excellent speech discrimina tion.Left ear:Mild CHL rising to normal thresholds at 2kHz with excellent speech discrimina tion. Tympanomet ry:Right Ear:Type ALeft Ear:Type B Health Concerns Section Related Observation LastModified by Organization Detai ls LastModified Time None Recorded Concern Status LastModified by Organization Details LastModified Time None Recorded Advance Directives Directive None Recorded Payers Insurance Date Sequence Insurance Name Policy Number Policy Evans Covered Member ID Evans Member ID Guarantor Name 02/25/2025 1 COUNT INCLUDES THE [facility] [employer] - DIRECT [place]HMO) [id number] Neyxen Roman [id number] Neyxen Roman 02/25/2025 1 [facility] [employer] PLAN [id number] Neyxen Roman [id number] Neyxen Roman 02/25/2025 1 [facility] PLAN [id number] Neyxen Roman [id number] Neyxen Roman 02/25/2025 2 [employer] Neyxen Roman [id number] [employer] Roman Notes Date Note Type Note Provider Name and Address Organization Details Recorded Time 11/27/2024 text/html ROS as noted in the HPI 19yo male presents for evaluation left hearing loss. He reports this started 4 weeks ago without inciting event or illness. Hearing feels muffled. He denies otalgia, otorrhea, or tinnitus. He required two sets of ear tubes during childhood. No recent ear infections. No prior ear surgery. ALICIA DESIR MD [address] [place] [address], [phone], [facility] - [facility] 11/28/2024 07:59:50
--- OUTSIDE RECORDS SUMMARY | 2025-08-26 17:42 | XMS_ITS | Encounter Summary ---
Author Organization [employer] Address 75 [facility] 7 [place] [address] Care Team Providers Care Semiconductor Bonder Name Role Phone Felicia Kim Primary Care Provider [phone] Reason for Visit * Reason Comments Med Refill Encounter Details Date Type Department Care Team ([facility] st Contact Info) Description 02/21/2025 Refill [facility] [address] [place], [place] [phone] Felicia Kim ANP [address] [place], [place] [phone] BMI 40.0-44.9, adult (CMS/HCC); Class 3 severe [...] documented as of this encounter Care Teams Semiconductor Bonder Relationship Specialty Start Date End Date Felicia Kim ANP [address] [place] [phone] PCP - General Family Medicine 06/25/23 documented as of this encounter
--- OUTSIDE RECORDS SUMMARY | 2025-08-26 17:42 | XMS_ITS | Encounter Summary ---
Author Organization [employer] Address [address] [facility] 7 [place] [address] Care Team Providers Care Tint Layer Name Role Phone Felicia Kim МАРИЯ Primary Care Provider [phone] Reason for Visit * Reason Comments Med Refill Encounter Details Date Type Department Care Team ([facility] st Contact Info) Description 08/15/2023 Refill [facility] [address] [place] [address] Donato Braga MD [address] [place] [address] Hypertension, unspecified type Social History Tobacco Use Types Packs/Day Years Used Date Smoking Tobacco: Never Smokeless Tobacco: Never Alcohol Use Standard Drinks/Week Comments Never 0 (1 standard drink = 0.6 oz pur e alcohol) Depression Answer Date Recorded Patient Health Questionnaire-9 Score 0 01/11/2023 Depression Answer Date Recorded Patient Health Questionnaire-2 [...] documented as of this encounter Care Teams Tint Layer Relationship Specialty Start Date End Date Felicia Kim ANP [address] [place] [address] PCP - General Family Medicine 06/25/23 documented as of this encounter
--- OUTSIDE RECORDS SUMMARY | 2025-08-26 17:42 | XMS_ITS | Encounter Summary ---
Author Organization [employer] Address [address] [facility] 7 [place] [address] Care Team Providers Care Salon Professional Name Role Phone Felicia Kim Primary Care Provider [phone] Reason for Visit * Reason Comments Med Refill Encounter Details Date Type Department Care Team ([facility] st Contact Info) Description 04/18/2025 Refill [facility] [address] [place], [place] [phone] Felicia Kim ANP [address] [place] [address] BMI 38.0-38.9,adult; Class 3 severe obesity with [...] documented as of this encounter Care Teams Salon Professional Relationship Specialty Start Date End Date Felicia Kim ANP [address] [place] [id number] PCP - General Family Medicine 06/25/23 documented as of this encounter
--- OUTSIDE RECORDS SUMMARY | 2025-08-26 17:42 | XMS_ITS | Encounter Summary ---
Author Organization [employer] Address [address] [facility] 7 [place] [address] Care Team Providers Care Resource Director Name Role Phone Felicia Kim Primary Care Provider Reason for Visit * Reason Onset Date Comments Med Refill 05/14/2025 Encounter Details Date Type Department Care Team (Late st Contact Info) Description 05/14/2025 Refill [facility] [address] [place], [place] [phone] Felicia Kim ANP [address] [place], [place] [phone] BMI 38.0-38.9,adult; Class 3 severe obesity with [...] documented as of this encounter Care Teams Resource Director Relationship Specialty Start Date End Date Felicia Kim ANP [address] [place] [id number] PCP - General Family Medicine 06/25/23 documented as of this encounter
--- OUTSIDE RECORDS SUMMARY | 2025-08-26 17:42 | XMS_ITS | Encounter Summary ---
Author Organization [employer] Address [address] [facility] [address] [place] [address] Care Team Providers Care Trucking Contractor Name Role Phone Judy Felicia HSIEH Primary Care Provider [phone] Encounter Details Date Type Department Care Team ([facility] st Contact Info) Description 10/18/2024 Orders Only [facility] [address] [place], [place] [phone] Rodrick Prajapati MD [address] [place] [address] Herpes labialis (Primary Dx) Social History Tobacco Use Types [...] with others, in a hotel, in a senior living, living outside on the street, on a [...] as of this encounter Visit Diagnoses Diagnosis Herpes labialis- Primary Herpes simplex without mention of complication documented in this encounter Additional Health Concerns Assessment Noted Time PHQ-9 Depression Total Score: 0 05/13/20 24 11:49 AM EDT documented as of this encounter Care Teams Trucking Contractor Relationship Specialty Start Date End Date Felicia iKm ANP [address] [place] [phone] PCP - General Family Medicine 06/25/23 documented as of this encounter
== END 2025-08-26 15:51 | disposition home or self-care (01) ==
LOC: HO.HUSH 13:56
PROVIDERS: PCP Family Medicine; Visit Provider Urology
DX: Z30.2 Encounter for sterilization (principal); R45.89 Other symptoms and signs involving emotional state
CPT/HCPCS: 55250

== ENCOUNTER → 2025-08-26 13:55 | Outpatient (BNVA) | payer OTHER, SELFPAY | PROVIDERS: PCP Family Medicine; Visit Provider Urology | DX: Z30.2 Encounter for sterilization (principal); F41.8 Other specified anxiety disorders | CPT/HCPCS: 55250 ==